=== PATIENT | male | born 1990 | race Caucasian/White ===

== ENCOUNTER → 2017-05-31 | Outpatient (CLI) | payer OTHER ==
[~2017-05-31] MED LIST: (None)20 M1 PO; ALBU2.5V5 NEB; ALBU90OI INH; AZIT500 PO; Advair Hfa 115-12 GM INH; Albuterol2.5 MG/0.5 INH; BUDE10.22 INH; BUDE6HFA INH; DILT120ERA PO; MONT10T PO; NICO21TP TOP; NIFE10 PO; NIFE60ER PO; Nicoderm Cq1 EAC1 TOP; Omeprazole20 M1 PO; PRED20 PO; Prednisone20 MG PO; Pulmicort0.5 MG/2 M INH; ROBITUSSIN DM PO; ZYRTEC10 M1 PO
[2017-05-31 10:54] LABS: Anion Gap 6 mmol/L (6-16); Blood Urea Nitrogen 12 mg/dL (8-24); Bun/Creatinine Ratio 15.2 (12.0-20.0); CO2, Blood 27 mmol/L (21-32); Calcium, Blood 8.3 mg/dL (8.5-10.1); Chloride, Blood 107 mmol/L (98-108); Creatinine, Blood 0.79 mg/dL (0.60-1.20); Glomerular Filtration Rate >60 (60-); Glucose, Blood 77 mg/dL (70-99); Potassium, Blood 3.5 mmol/L (3.5-5.5); Sodium, Blood 140 mmol/L (136-145)
== END | disposition home or self-care (01) ==
LOC: LAB 10:25
PROVIDERS: Internal Medicine
DX: I10 Essential (primary) hypertension (principal)
CPT/HCPCS: 80048

== ENCOUNTER 2017-12-26 08:26 | Day surgery (SDC) | payer OTHER ==
[~2017-12-26] VITALS: Ht 175.3 cm; Wt 97.1 kg
[~2017-12-26 08:26] MED LIST changes: -ALBU2.5V5 NEB; -AZIT500 PO; -BUDE6HFA INH; -NICO21TP TOP; -NIFE10 PO; -Nicoderm Cq1 EAC1 TOP; -Omeprazole20 M1 PO; -Prednisone20 MG PO; -Pulmicort0.5 MG/2 M INH
== END 2017-12-26 10:50 | disposition home or self-care (01) ==
LOC: ORSCSDS 08:26
PROVIDERS: Student in an Organized Health Care Education/Training Program
PROC: 0DB58ZX Excision of Esophagus, Via Natural or Artificial Opening Endoscopic, Diagnostic (ICD-10-PCS; principal; 2017-12-26 09:45)
PROC: 0D758ZZ Dilation of Esophagus, Via Natural or Artificial Opening Endoscopic (ICD-10-PCS; principal; 2017-12-26 09:45)
PROC: 0DB68ZX Excision of Stomach, Via Natural or Artificial Opening Endoscopic, Diagnostic (ICD-10-PCS; principal; 2017-12-26 09:45)
DX: K21.9 Gastro-esophageal reflux disease without esophagitis (principal); R13.10 Dysphagia, unspecified; R10.13 Epigastric pain; K22.2 Esophageal obstruction; I10 Essential (primary) hypertension; F17.210 Nicotine dependence, cigarettes, uncomplicated; J45.909 Unspecified asthma, uncomplicated; Z79.899 Other long term (current) drug therapy
CPT/HCPCS: C1726; J0330; J1980; J2405; J7120

== ENCOUNTER 2018-01-26 21:54 | Emergency (ER) | payer OTHER ==
[~2018-01-26] VITALS: Ht 177.8 cm; Wt 99.8 kg
[2018-01-26] MEDS ORDERED: BUDE6HFA INH (22:29)
[2018-01-26] MEDS ORDERED: Omeprazole20 M1 PO (22:29)
[2018-01-26] MEDS ORDERED: NIFE10 PO (22:30)
[2018-01-27] MEDS ORDERED: Prednisone20 MG PO (01:21)
[2018-01-27] MEDS ORDERED: Omeprazole20 M1 PO (19:49)
[2018-01-27] MEDS ORDERED: NIFE60ER PO (19:51)
[2018-01-29] MEDS ORDERED: ALBU2.5V5 NEB (10:21)
[2018-01-29] MEDS ORDERED: NICO21TP TOP (10:23)
[2018-01-29] MEDS ORDERED: (None)20 M1 PO (10:23)
[2018-01-29] MEDS ORDERED: Pulmicort0.5 MG/2 M INH (10:24)
== END 2018-01-27 01:28 | disposition home or self-care (01) ==
LOC: ER 21:54
DX: J45.901 Unspecified asthma with (acute) exacerbation (principal); F17.200 Nicotine dependence, unspecified, uncomplicated; Z91.011 Allergy to milk products; Z91.048 Other nonmedicinal substance allergy status; Z79.899 Other long term (current) drug therapy; Z79.51 Long term (current) use of inhaled steroids
CPT/HCPCS: 71046; 94644; 99283-25; J1100

== ENCOUNTER 2018-01-27 09:02 | Emergency (ER) | payer OTHER ==
[~2018-01-27] VITALS: Ht 177.8 cm; Wt 99.8 kg
[~2018-01-27 09:02] MED LIST changes: +BUDE6HFA INH; +NIFE10 PO; +Omeprazole20 M1 PO; +Prednisone20 MG PO
[2018-01-27 12:21] LABS: PCO2 Arterial 40.5 mmHg (35-45); PO2 Arterial 62.7 mmHg (80-100)
[2018-01-27] MEDS ORDERED: Omeprazole20 M1 PO ×2 (19:49)
[2018-01-27] MEDS ORDERED: NIFE60ER PO ×2 (19:51)
== END 2018-01-27 14:58 | disposition home or self-care (01) ==
LOC: ER 09:02
PROVIDERS: Nurse Practitioner Family
DX: J45.901 Unspecified asthma with (acute) exacerbation (principal); F17.200 Nicotine dependence, unspecified, uncomplicated; Z91.011 Allergy to milk products; Z91.048 Other nonmedicinal substance allergy status; Z79.899 Other long term (current) drug therapy; Z79.51 Long term (current) use of inhaled steroids
CPT/HCPCS: 36415; 36600; 82803; 94640; 94644; 96374; 96375; 99283-25; J2930; J3475

== ENCOUNTER 2018-01-27 17:06 | Inpatient (IN) | payer OTHER ==
[~2018-01-27] VITALS: Ht 177.8 cm; Wt 97.9 kg
[2018-01-27 18:16] LABS: BASOPHILS ABSOLUTE AUTO 0.01 K/mm3 (0.00-0.23); BASOPHILS PERCENT AUTO 0 % (0-2); EOSINOPHILS PERCENT AUTO 0 % (0-6); Hematocrit 47.7 % (37.0-53.0); Hemoglobin 15.3 g/dL (13.5-17.5); IMMATURE GRAN ABSOLUTE AUTO 0.08 K/mm3 (0.00-0.10); IMMATURE GRAN PERCENT AUTO 1 % (0-1); LYMPHOCYTES ABSOLUTE AUTO 0.22 K/mm3 (0.84-5.20); LYMPHOCYTES PERCENT AUTO 1 % (21-46); MONOCYTES ABSOLUTE AUTO 0.13 K/mm3 (0.16-1.47); MONOCYTES PERCENT AUTO 1 % (4-13); Mean Corpuscular HGB 31.4 pg (26.0-34.0); Mean Corpuscular HGB Conc 32.1 g/dL (31.5-36.5); Mean Corpuscular Volume 98 fL (80-100); Mean Platelet Volume 9.8 fL (9.1-12.4); NEUTROPHILS ABSOLUTE AUTO 15.17 K/mm3 (1.96-9.15); NEUTROPHILS PERCENT AUTO 97 % (41-73); Platelet Count 159 K/mm3 (150-400); RDW Coefficient Variation 12.7 % (11.7-14.2); RDW Standard Deviation 45.9 fL (35.1-46.3); Red Blood Cell Count 4.87 M/mm3 (4.30-5.90); White Blood Cell Count 15.61 K/mm3 (4.00-11.30)
[2018-01-27 18:30] LABS: Anion Gap 9 mmol/L (6-16); Blood Urea Nitrogen 11 mg/dL (8-24); Bun/Creatinine Ratio 15.9 (12.0-20.0); CO2, Blood 24 mmol/L (21-32); Calcium, Blood 8.5 mg/dL (8.5-10.1); Chloride, Blood 106 mmol/L (98-108); Creatinine, Blood 0.69 mg/dL (0.60-1.20); Glomerular Filtration Rate >60 (60-); Glucose, Blood 225 mg/dL (70-99); Potassium, Blood 3.9 mmol/L (3.5-5.5); Sodium, Blood 139 mmol/L (136-145)
[2018-01-27] MEDS ORDERED: Omeprazole20 M1 PO ×2 (19:49)
[2018-01-27] MEDS ORDERED: NIFE60ER PO ×2 (19:51)
[2018-01-28 05:20] LABS: BASOPHILS ABSOLUTE AUTO 0.03 K/mm3 (0.00-0.23); BASOPHILS PERCENT AUTO 0 % (0-2); EOSINOPHILS PERCENT AUTO 0 % (0-6); Hematocrit 46.4 % (37.0-53.0); IMMATURE GRAN ABSOLUTE AUTO 0.12 K/mm3 (0.00-0.10); IMMATURE GRAN PERCENT AUTO 1 % (0-1); LYMPHOCYTES ABSOLUTE AUTO 0.49 K/mm3 (0.84-5.20); LYMPHOCYTES PERCENT AUTO 3 % (21-46); MONOCYTES ABSOLUTE AUTO 0.52 K/mm3 (0.16-1.47); MONOCYTES PERCENT AUTO 3 % (4-13); Mean Corpuscular HGB 31.1 pg (26.0-34.0); Mean Corpuscular HGB Conc 32.3 g/dL (31.5-36.5); Mean Corpuscular Volume 96 fL (80-100); NEUTROPHILS ABSOLUTE AUTO 17.26 K/mm3 (1.96-9.15); NEUTROPHILS PERCENT AUTO 94 % (41-73); Platelet Count 177 K/mm3 (150-400); RDW Coefficient Variation 13.1 % (11.7-14.2); RDW Standard Deviation 46.3 fL (35.1-46.3); Red Blood Cell Count 4.82 M/mm3 (4.30-5.90); White Blood Cell Count 18.42 K/mm3 (4.00-11.30)
[2018-01-28 05:38] LABS: Anion Gap 8 mmol/L (6-16); Blood Urea Nitrogen 14 mg/dL (8-24); Bun/Creatinine Ratio 19.2 (12.0-20.0); CO2, Blood 25 mmol/L (21-32); Calcium, Blood 8.3 mg/dL (8.5-10.1); Chloride, Blood 106 mmol/L (98-108); Creatinine, Blood 0.73 mg/dL (0.60-1.20); Glomerular Filtration Rate >60 (60-); Glucose, Blood 208 mg/dL (70-99); Sodium, Blood 139 mmol/L (136-145)
[2018-01-29] MEDS ORDERED: ALBU2.5V5 NEB ×2 (10:21)
[2018-01-29] MEDS ORDERED: NICO21TP TOP ×2 (10:23)
[2018-01-29] MEDS ORDERED: (None)20 M1 PO ×2 (10:23)
[2018-01-29] MEDS ORDERED: Pulmicort0.5 MG/2 M INH ×2 (10:24)
== END 2018-01-29 11:15 | disposition home or self-care (01) | DRG 202 ==
LOC: ER 17:06 → MEDS 17:07 → ENPENDDIS 01-29 10:03 → MEDS 01-29 11:15
PROVIDERS: Emergency Medicine; Hospitalist
PROC: 3E0234Z Introduction of Serum, Toxoid and Vaccine into Muscle, Percutaneous Approach (ICD-10-PCS; principal; 2018-01-27)
DX: J45.901 Unspecified asthma with (acute) exacerbation (principal); J96.01 Acute respiratory failure with hypoxia; Z23 Encounter for immunization; K21.9 Gastro-esophageal reflux disease without esophagitis; I10 Essential (primary) hypertension; R73.9 Hyperglycemia, unspecified; T38.0X5A Adverse effect of glucocorticoids and synthetic analogues, initial encounter; F17.210 Nicotine dependence, cigarettes, uncomplicated; Z88.8 Allergy status to other drugs, medicaments and biological substances; Z91.011 Allergy to milk products; Z79.52 Long term (current) use of systemic steroids; Z79.899 Other long term (current) drug therapy
CPT/HCPCS: 36415; 80048; 82947; 85025; 87070; 87205; 90686; 94640; 94760; 96372; 96374; 96376; 99285-25; G0008; G0378; J1650; J2920

== ENCOUNTER 2018-01-31 09:11 | Inpatient (IN) | payer OTHER ==
[~2018-01-31] VITALS: Ht 177.8 cm; Wt 95.3 kg
[~2018-01-31 09:11] MED LIST changes: +ALBU2.5V5 NEB; +NICO21TP TOP; +Pulmicort0.5 MG/2 M INH
[2018-01-31 12:31] LABS: BASOPHILS ABSOLUTE AUTO 0.03 K/mm3 (0.00-0.23); BASOPHILS PERCENT AUTO 0 % (0-2); EOSINOPHILS ABSOLUTE AUTO 0.01 K/mm3 (0.00-0.68); EOSINOPHILS PERCENT AUTO 0 % (0-6); Hematocrit 47.2 % (37.0-53.0); Hemoglobin 15.5 g/dL (13.5-17.5); IMMATURE GRAN ABSOLUTE AUTO 0.34 K/mm3 (0.00-0.10); IMMATURE GRAN PERCENT AUTO 3 % (0-1); LYMPHOCYTES ABSOLUTE AUTO 0.47 K/mm3 (0.84-5.20); LYMPHOCYTES PERCENT AUTO 5 % (21-46); MONOCYTES PERCENT AUTO 4 % (4-13); Mean Corpuscular HGB 31.5 pg (26.0-34.0); Mean Corpuscular HGB Conc 32.8 g/dL (31.5-36.5); Mean Corpuscular Volume 96 fL (80-100); Mean Platelet Volume 9.4 fL (9.1-12.4); NEUTROPHILS ABSOLUTE AUTO 9.21 K/mm3 (1.96-9.15); NEUTROPHILS PERCENT AUTO 88 % (41-73); Platelet Count 142 K/mm3 (150-400); RDW Coefficient Variation 12.8 % (11.7-14.2); RDW Standard Deviation 45.1 fL (35.1-46.3); Red Blood Cell Count 4.92 M/mm3 (4.30-5.90); White Blood Cell Count 10.46 K/mm3 (4.00-11.30)
[2018-01-31 12:45] LABS: Anion Gap 8 mmol/L (6-16); Blood Urea Nitrogen 16 mg/dL (8-24); CO2, Blood 30 mmol/L (21-32); Calcium, Blood 8.3 mg/dL (8.5-10.1); Chloride, Blood 104 mmol/L (98-108); Creatinine, Blood 0.76 mg/dL (0.60-1.20); Glomerular Filtration Rate >60 (60-); Glucose, Blood 108 mg/dL (70-99); Potassium, Blood 3.8 mmol/L (3.5-5.5); Sodium, Blood 142 mmol/L (136-145)
[2018-01-31 14:06] LABS: Influenza A Negative (NEGATIVE); Influenza B Negative (NEGATIVE)
[2018-02-01 05:18] LABS: BASOPHILS ABSOLUTE AUTO 0.05 K/mm3 (0.00-0.23); BASOPHILS PERCENT AUTO 0 % (0-2); EOSINOPHILS PERCENT AUTO 0 % (0-6); Hematocrit 47.6 % (37.0-53.0); Hemoglobin 15.4 g/dL (13.5-17.5); IMMATURE GRAN ABSOLUTE AUTO 0.36 K/mm3 (0.00-0.10); IMMATURE GRAN PERCENT AUTO 3 % (0-1); LYMPHOCYTES ABSOLUTE AUTO 0.71 K/mm3 (0.84-5.20); LYMPHOCYTES PERCENT AUTO 6 % (21-46); MONOCYTES ABSOLUTE AUTO 0.67 K/mm3 (0.16-1.47); MONOCYTES PERCENT AUTO 5 % (4-13); Mean Corpuscular HGB 31.4 pg (26.0-34.0); Mean Corpuscular HGB Conc 32.4 g/dL (31.5-36.5); Mean Corpuscular Volume 97 fL (80-100); Mean Platelet Volume 9.6 fL (9.1-12.4); NEUTROPHILS ABSOLUTE AUTO 10.89 K/mm3 (1.96-9.15); NEUTROPHILS PERCENT AUTO 86 % (41-73); Platelet Count 164 K/mm3 (150-400); RDW Coefficient Variation 12.8 % (11.7-14.2); RDW Standard Deviation 45.4 fL (35.1-46.3); White Blood Cell Count 12.68 K/mm3 (4.00-11.30)
[2018-02-01 05:43] LABS: Anion Gap 8 mmol/L (6-16); Blood Urea Nitrogen 16 mg/dL (8-24); Bun/Creatinine Ratio 20.5 (12.0-20.0); CO2, Blood 28 mmol/L (21-32); Calcium, Blood 8.4 mg/dL (8.5-10.1); Chloride, Blood 104 mmol/L (98-108); Creatinine, Blood 0.78 mg/dL (0.60-1.20); Glomerular Filtration Rate >60 (60-); Glucose, Blood 161 mg/dL (70-99); Potassium, Blood 4.2 mmol/L (3.5-5.5); Sodium, Blood 140 mmol/L (136-145)
[2018-02-02 04:52] LABS: BASOPHILS ABSOLUTE AUTO 0.04 K/mm3 (0.00-0.23); BASOPHILS PERCENT AUTO 0 % (0-2); EOSINOPHILS PERCENT AUTO 0 % (0-6); Hematocrit 50.6 % (37.0-53.0); Hemoglobin 16.7 g/dL (13.5-17.5); IMMATURE GRAN ABSOLUTE AUTO 0.49 K/mm3 (0.00-0.10); IMMATURE GRAN PERCENT AUTO 4 % (0-1); LYMPHOCYTES ABSOLUTE AUTO 0.75 K/mm3 (0.84-5.20); LYMPHOCYTES PERCENT AUTO 6 % (21-46); MONOCYTES ABSOLUTE AUTO 0.47 K/mm3 (0.16-1.47); MONOCYTES PERCENT AUTO 4 % (4-13); Mean Corpuscular HGB 31.5 pg (26.0-34.0); Mean Corpuscular Volume 96 fL (80-100); Mean Platelet Volume 9.4 fL (9.1-12.4); NEUTROPHILS ABSOLUTE AUTO 11.53 K/mm3 (1.96-9.15); NEUTROPHILS PERCENT AUTO 87 % (41-73); Platelet Count 186 K/mm3 (150-400); RDW Coefficient Variation 12.9 % (11.7-14.2); RDW Standard Deviation 45.2 fL (35.1-46.3); White Blood Cell Count 13.28 K/mm3 (4.00-11.30)
[2018-02-02] MEDS ORDERED: Nicoderm Cq1 EAC1 TOP (10:21)
[2018-02-02] MEDS ORDERED: AZIT500 PO (10:21)
== END 2018-02-02 11:03 | disposition home or self-care (01) | DRG 189 ==
LOC: ER 09:11 → MEDS 09:12
PROVIDERS: Family Medicine
PROC: 3E0234Z Introduction of Serum, Toxoid and Vaccine into Muscle, Percutaneous Approach (ICD-10-PCS; principal; 2018-01-31)
DX: J96.01 Acute respiratory failure with hypoxia (principal); J45.901 Unspecified asthma with (acute) exacerbation; I10 Essential (primary) hypertension; F17.210 Nicotine dependence, cigarettes, uncomplicated; Z91.011 Allergy to milk products; Z79.899 Other long term (current) drug therapy; Z23 Encounter for immunization
CPT/HCPCS: 36415; 71046; 80048; 85025; 87449; 87804; 90732; 94640; 94644; 94760; 96374; 99285-25; J0456; J2920; J2930; J7050

== ENCOUNTER 2018-05-13 10:44 | Emergency (ER) | payer OTHER ==
[~2018-05-13] VITALS: Ht 177.8 cm; Wt 103.4 kg
[~2018-05-13 10:44] MED LIST changes: +AZIT500 PO; +Nicoderm Cq1 EAC1 TOP
[2018-05-13] MEDS ORDERED: Pulmicort0.5 MG/2 M INH (11:39)
[2018-05-13] MEDS ORDERED: PRED20 PO (11:39)
[2018-05-13] MEDS ORDERED: ALBU90OI INH (11:39)
[2018-05-13] MEDS ORDERED: OMEPRAZOLE20 MG PO (11:39)
[2018-05-13] MEDS ORDERED: NIFE60ER PO (11:39)
[2018-05-13] MEDS ORDERED: BUDE10.22 INH (11:39)
== END 2018-05-13 12:01 | disposition home or self-care (01) ==
LOC: ER 10:44
DX: J45.901 Unspecified asthma with (acute) exacerbation (principal); Z91.011 Allergy to milk products; Z88.8 Allergy status to other drugs, medicaments and biological substances; Z79.899 Other long term (current) drug therapy; Z79.52 Long term (current) use of systemic steroids; J45.909 Unspecified asthma, uncomplicated; I10 Essential (primary) hypertension; F17.210 Nicotine dependence, cigarettes, uncomplicated
CPT/HCPCS: 94640; 99284-25

== ENCOUNTER 2018-06-13 02:12 | Emergency (ER) | payer MEDICAID ==
[~2018-06-13] VITALS: Ht 177.8 cm; Wt 104.3 kg
[~2018-06-13 02:12] MED LIST changes: +OMEPRAZOLE20 MG PO
[2018-06-13] MEDS ORDERED: Prednisone20 MG PO (04:31)
[2018-06-13] MEDS ORDERED: Proventil5 MG/1 ML INH (04:31)
== END 2018-06-13 04:44 | disposition home or self-care (01) ==
LOC: ER 02:12
DX: J45.901 Unspecified asthma with (acute) exacerbation (principal); I10 Essential (primary) hypertension; K21.9 Gastro-esophageal reflux disease without esophagitis; Z91.011 Allergy to milk products; Z91.048 Other nonmedicinal substance allergy status; F17.200 Nicotine dependence, unspecified, uncomplicated
CPT/HCPCS: 71046; 94640; 99285-25

== ENCOUNTER 2018-07-27 10:01 | Inpatient (IN) | payer OTHER ==
[~2018-07-27] VITALS: Ht 177.8 cm; Wt 106.7 kg
[~2018-07-27 10:01] MED LIST changes: +Accuneb0.63 MG/3 INH; +Proventil5 MG/1 ML INH
[2018-07-27 10:29] LABS: BASOPHILS ABSOLUTE AUTO 0.09 K/mm3 (0.00-0.23); BASOPHILS PERCENT AUTO 1 % (0-2); EOSINOPHILS ABSOLUTE AUTO 0.01 K/mm3 (0.00-0.68); EOSINOPHILS PERCENT AUTO 0 % (0-6); Hematocrit 49.8 % (37.0-53.0); IMMATURE GRAN ABSOLUTE AUTO 0.12 K/mm3 (0.00-0.10); IMMATURE GRAN PERCENT AUTO 1 % (0-1); LYMPHOCYTES ABSOLUTE AUTO 0.92 K/mm3 (0.84-5.20); LYMPHOCYTES PERCENT AUTO 5 % (21-46); MONOCYTES ABSOLUTE AUTO 2.03 K/mm3 (0.16-1.47); MONOCYTES PERCENT AUTO 10 % (4-13); Mean Corpuscular HGB 31.9 pg (26.0-34.0); Mean Corpuscular HGB Conc 32.1 g/dL (31.5-36.5); Mean Corpuscular Volume 99 fL (80-100); Mean Platelet Volume 9.6 fL (9.1-12.4); NEUTROPHILS ABSOLUTE AUTO 16.32 K/mm3 (1.96-9.15); NEUTROPHILS PERCENT AUTO 84 % (41-73); Platelet Count 190 K/mm3 (150-400); RDW Coefficient Variation 13.5 % (11.7-14.2); RDW Standard Deviation 49.3 fL (35.1-46.3); Red Blood Cell Count 5.01 M/mm3 (4.30-5.90); White Blood Cell Count 19.49 K/mm3 (4.00-11.30)
[2018-07-27 10:51] LABS: Alanine Aminotransfer (ALT/SGP 43 U/L (12-78); Albumin, Blood 4.1 g/dL (3.4-5.0); Albumin/Globulin Ratio 1.1 (0.8-1.8); Alk Phos 73 U/L (50-136); Anion Gap 6 mmol/L (6-16); Aspartate Aminotrans (AST/SGOT 81 U/L (12-37); Bilirubin, Total 1.8 mg/dL (0.1-1.0); Blood Urea Nitrogen 23 mg/dL (8-24); Bun/Creatinine Ratio 25.7 (12.0-20.0); CO2, Blood 26 mmol/L (21-32); Calcium, Blood 8.2 mg/dL (8.5-10.1); Chloride, Blood 105 mmol/L (98-108); Globulin, Blood 3.7 g/dL (2.2-4.0); Glomerular Filtration Rate >60 (60-); Glucose, Blood 107 mg/dL (70-99); Potassium, Blood 3.4 mmol/L (3.5-5.5); Sodium, Blood 137 mmol/L (136-145); Total Protein, Blood 7.8 g/dL (6.4-8.2)
[2018-07-27 11:06] LABS: Influenza A Positive (NEGATIVE); Influenza B Negative (NEGATIVE)
[2018-07-27 11:10] LABS: PCO2 Arterial 41.2 mmHg (35-45); PO2 Arterial 68.9 mmHg (80-100); pH Blood Arterial 7.39 (7.35-7.45)
[2018-07-27 16:06] LABS: BASOPHILS ABSOLUTE AUTO 0.05 K/mm3 (0.00-0.23); BASOPHILS PERCENT AUTO 0 % (0-2); EOSINOPHILS PERCENT AUTO 0 % (0-6); Hematocrit 46.9 % (37.0-53.0); Hemoglobin 14.8 g/dL (13.5-17.5); IMMATURE GRAN ABSOLUTE AUTO 0.04 K/mm3 (0.00-0.10); IMMATURE GRAN PERCENT AUTO 0 % (0-1); LYMPHOCYTES PERCENT AUTO 2 % (21-46); MONOCYTES ABSOLUTE AUTO 0.63 K/mm3 (0.16-1.47); MONOCYTES PERCENT AUTO 5 % (4-13); Mean Corpuscular HGB 31.4 pg (26.0-34.0); Mean Corpuscular HGB Conc 31.6 g/dL (31.5-36.5); Mean Corpuscular Volume 100 fL (80-100); Mean Platelet Volume 9.9 fL (9.1-12.4); NEUTROPHILS ABSOLUTE AUTO 11.76 K/mm3 (1.96-9.15); NEUTROPHILS PERCENT AUTO 92 % (41-73); Platelet Count 146 K/mm3 (150-400); RDW Coefficient Variation 13.8 % (11.7-14.2); RDW Standard Deviation 51.5 fL (35.1-46.3); Red Blood Cell Count 4.71 M/mm3 (4.30-5.90); White Blood Cell Count 12.78 K/mm3 (4.00-11.30)
[2018-07-27 16:24] LABS: International Normalized Ratio 1.13; Prothrombin Time Results 11.8 Sec (9.7-11.5)
[2018-07-27 18:50] LABS: Source, Urine Catheter
[2018-07-27 19:11] LABS: Appearance, Urine Clear (Clear); Bilirubin, Urine Neg (Neg); Blood, Urine Neg (Neg); Color, Urine Yellow (P-Yellow); Glucose Qualitative, Urine Neg (Neg); Ketones, Urine Neg (Neg); Leukocyte Esterase, Urine Neg (Neg); Nitrite, Urine Neg (Neg); Protein, Urine Neg (Neg); Urobilinogen, Urine NORM (Normal)
[2018-07-28 05:00] LABS: BASOPHILS ABSOLUTE AUTO 0.01 K/mm3 (0.00-0.23); BASOPHILS PERCENT AUTO 0 % (0-2); EOSINOPHILS PERCENT AUTO 0 % (0-6); Hematocrit 41.8 % (37.0-53.0); Hemoglobin 13.3 g/dL (13.5-17.5); IMMATURE GRAN ABSOLUTE AUTO 0.04 K/mm3 (0.00-0.10); IMMATURE GRAN PERCENT AUTO 0 % (0-1); LYMPHOCYTES ABSOLUTE AUTO 0.22 K/mm3 (0.84-5.20); LYMPHOCYTES PERCENT AUTO 3 % (21-46); MONOCYTES ABSOLUTE AUTO 0.14 K/mm3 (0.16-1.47); MONOCYTES PERCENT AUTO 2 % (4-13); Mean Corpuscular HGB 31.6 pg (26.0-34.0); Mean Corpuscular HGB Conc 31.8 g/dL (31.5-36.5); Mean Corpuscular Volume 99 fL (80-100); Mean Platelet Volume 9.8 fL (9.1-12.4); NEUTROPHILS ABSOLUTE AUTO 8.56 K/mm3 (1.96-9.15); NEUTROPHILS PERCENT AUTO 95 % (41-73); Platelet Count 114 K/mm3 (150-400); RDW Coefficient Variation 13.2 % (11.7-14.2); RDW Standard Deviation 48.7 fL (35.1-46.3); Red Blood Cell Count 4.21 M/mm3 (4.30-5.90); White Blood Cell Count 8.97 K/mm3 (4.00-11.30)
[2018-07-28 05:29] LABS: Anion Gap 7 mmol/L (6-16); Blood Urea Nitrogen 15 mg/dL (8-24); Bun/Creatinine Ratio 24.2 (12.0-20.0); CO2, Blood 26 mmol/L (21-32); Chloride, Blood 107 mmol/L (98-108); Creatinine, Blood 0.62 mg/dL (0.60-1.20); Glomerular Filtration Rate >60 (60-); Glucose, Blood 155 mg/dL (70-99); Potassium, Blood 3.7 mmol/L (3.5-5.5); Sodium, Blood 140 mmol/L (136-145)
--- NOTE | 2018-07-28 06:41 | NUR ---
SHIFT SUMMARY PT IS A 27 Y/O MALE, ADMITTED FOR SEPSIS RELATED TO THE FLU. HE IS A7O X 4, AND ABLE TO AMBULATE INDEPENDENTLY WITH HIS IV POLE. THE PT HAS BEEN RECEIVING A HIGH AMOUNT OF IV FLUIDS, WITH 3X LR BOLUS AND LR AT 150 ML/HR. HE REPORTED THAT HE IS FEELING "MUCH BETTER" COMPARED WITH HIS ADMISSION, THOUGH HE IS STILL REPORTING INCREASED SOB COMPARED TO HIS BASELINE, WHICH IS WORSE WITH AMBULATION. HE DENIED ANY PAIN OR NAUSEA. VITAL SIGNS STABLE. NO OTHER ACUTE CHANGES IN PT CONDITION NOTED. WILL CONTINUE TO MONITOR AND TREAT PER EMAR UNTIL HAND OFF TO DAY SHIFT.
--- NOTE | 2018-07-28 16:56 | NUR ---
SHIFT SUMMARY 27 YR OLD MALE ADMITTED FOR SEPSIS/FLU/ASTHMA EXACERBATION. FULL CODE. LR DECREASED TO 100 ML/HR TODAY. SOLUMEDROL DECREASED TO 40 MG DOSES TODAY. PT IS AC [id number] CHEMSTICKS (LIKELY RE:SOLUMEDROL). PT IS TACHYCARDIC ON AVG. RUNNING 100'S-112 BPM. MONITORED BY TELEMETRY/PCU MOTOR GENERATOR SET OPERATOR. PLAN IS FOR PT TO DC IN THE MORNING. PT MAY NEED HELP WITH DISCHARGE PLANNING DUE TO LACK OF HEALTH INSURANCE. HE IS A&O X4, INDEPENDENT IN THE ROOM. PT LIVES AT HOME AND WILL DC THERE. NO COMPLAINTS OF PAIN OR SOB, PT IS RECEIVING TREATMENTS FROM RESPIRATORY THERAPY. HE IS IN DROPLET/CONTACT PRECAUTIONS DUE TO INFLUENZA A.
--- NOTE | 2018-07-29 04:13 | NUR ---
Shift summary: Pt states he's feeling much better. Pt tolerating po well. Pt remains on contact /droplet precauion. Telemetry sinus tach 115- 115.. No nausea/vomiting / diahrea. Pt anticipating D/c in am.
[2018-07-29] MEDS ORDERED: ALBU2.5V5 NEB (12:44)
[2018-07-29] MEDS ORDERED: OSEL75CA PO (12:45)
[2018-07-29] MEDS ORDERED: FLUT1DIS5 INH (12:46)
[2018-07-29] MEDS ORDERED: LEVO750 PO (12:47)
[2018-07-29] MEDS ORDERED: PRED10 PO (12:52)
--- NOTE | 2018-07-29 14:14 | NUR ---
DISCHARGE DISCHARGE MEDICATIONS AND INSTRUCTIONS EXPLAINED TO PATIENT. PATIENT STATED UNDERSTANDING. IV REMOVED WITHOUT DIFFICULTY. BELONGINGS WITH PATIENT. ROSAURAETN AMBULATED TO PRIVATE VEHICLE.
== END 2018-07-29 13:44 | disposition home or self-care (01) | DRG 871 ==
LOC: ER 10:01 → MEDS 11:47 → ENPENDDIS 07-29 11:00 → MEDS 07-29 13:44
PROVIDERS: Emergency Medicine; ADMIT Internal Medicine
DX: A41.9 Sepsis, unspecified organism (principal); J96.01 Acute respiratory failure with hypoxia; J45.901 Unspecified asthma with (acute) exacerbation; R65.20 Severe sepsis without septic shock; E87.6 Hypokalemia; F17.210 Nicotine dependence, cigarettes, uncomplicated; D69.6 Thrombocytopenia, unspecified; I10 Essential (primary) hypertension; K21.9 Gastro-esophageal reflux disease without esophagitis; E86.0 Dehydration; Z91.14 Patient's other noncompliance with medication regimen; J10.1 Influenza due to other identified influenza virus with other respiratory manifestations; R73.9 Hyperglycemia, unspecified
CPT/HCPCS: 36415; 36600; 71045; 80048; 80053; 81003; 82803; 82947; 83605; 84145; 85025; 85610; 85730; 87804; 93005; 93010; 94640; 94644; 94760; 96361; 96365; 96367; 96375; 99285-25; J0456; J0696; J1650; J2930; J7030; J7050; J7120; J7626

== ENCOUNTER 2018-09-28 10:39 | Emergency (ER) | payer SELFPAY ==
[~2018-09-28] VITALS: Ht 180.3 cm; Wt 104.3 kg
[~2018-09-28 10:39] MED LIST changes: +DILT120 PO; +FLUT1DIS5 INH; +LEVO750 PO; +OSEL75CA PO; +PRED10 PO
[2018-09-28 10:56] LABS: BASOPHILS ABSOLUTE AUTO 0.06 K/mm3 (0.00-0.23); BASOPHILS PERCENT AUTO 1 % (0-2); EOSINOPHILS ABSOLUTE AUTO 0.32 K/mm3 (0.00-0.68); EOSINOPHILS PERCENT AUTO 3 % (0-6); Hematocrit 53.7 % (37.0-53.0); Hemoglobin 17.6 g/dL (13.5-17.5); IMMATURE GRAN ABSOLUTE AUTO 0.05 K/mm3 (0.00-0.10); IMMATURE GRAN PERCENT AUTO 1 % (0-1); LYMPHOCYTES ABSOLUTE AUTO 1.44 K/mm3 (0.84-5.20); LYMPHOCYTES PERCENT AUTO 14 % (21-46); MONOCYTES ABSOLUTE AUTO 0.86 K/mm3 (0.16-1.47); MONOCYTES PERCENT AUTO 8 % (4-13); Mean Corpuscular HGB 31.5 pg (26.0-34.0); Mean Corpuscular HGB Conc 32.8 g/dL (31.5-36.5); Mean Corpuscular Volume 96 fL (80-100); Mean Platelet Volume 9.7 fL (9.1-12.4); NEUTROPHILS ABSOLUTE AUTO 7.93 K/mm3 (1.96-9.15); NEUTROPHILS PERCENT AUTO 74 % (41-73); Platelet Count 174 K/mm3 (150-400); RDW Coefficient Variation 13.2 % (11.7-14.2); Red Blood Cell Count 5.59 M/mm3 (4.30-5.90); White Blood Cell Count 10.66 K/mm3 (4.00-11.30)
[2018-09-28 11:12] LABS: Alanine Aminotransfer (ALT/SGP 41 U/L (12-78); Albumin, Blood 4.2 g/dL (3.4-5.0); Albumin/Globulin Ratio 1.2 (0.8-1.8); Alk Phos 90 U/L (50-136); Anion Gap 3 mmol/L (6-16); Aspartate Aminotrans (AST/SGOT 29 U/L (12-37); Bilirubin, Total 0.9 mg/dL (0.1-1.0); Blood Urea Nitrogen 10 mg/dL (8-24); Bun/Creatinine Ratio 11.4 (12.0-20.0); CO2, Blood 31 mmol/L (21-32); Calcium, Blood 8.6 mg/dL (8.5-10.1); Chloride, Blood 108 mmol/L (98-108); Creatinine, Blood 0.88 mg/dL (0.60-1.20); Globulin, Blood 3.4 g/dL (2.2-4.0); Glomerular Filtration Rate >60 (60-); Glucose, Blood 90 mg/dL (70-99); Potassium, Blood 3.7 mmol/L (3.5-5.5); Sodium, Blood 142 mmol/L (136-145); Total Protein, Blood 7.6 g/dL (6.4-8.2)
[2018-09-28] MEDS ORDERED: Prednisone20 MG PO (11:36)
[2018-09-28] MEDS ORDERED: ALBU90OI61 INH (11:36)
== END 2018-09-28 12:19 | disposition home or self-care (01) ==
LOC: ER 10:39
PROVIDERS: Emergency Medicine
DX: J45.901 Unspecified asthma with (acute) exacerbation (principal); I10 Essential (primary) hypertension; K21.9 Gastro-esophageal reflux disease without esophagitis; F17.210 Nicotine dependence, cigarettes, uncomplicated; Z91.011 Allergy to milk products
CPT/HCPCS: 36415; 71046; 80053; 85025; 94644; 96374; 99285-25; J2930

== ENCOUNTER 2018-10-15 03:29 | Emergency (ER) | payer SELFPAY ==
[~2018-10-15] VITALS: Ht 177.8 cm; Wt 104.3 kg
[~2018-10-15 03:29] MED LIST changes: +ALBU90OI61 INH
[2018-10-15] MEDS ORDERED: Prednisone20 MG PO (05:09)
[2018-10-15] MEDS ORDERED: ALBU90OI INH (05:09)
[2019-01-16] MEDS ORDERED: ALBU2.5V5 INH (07:18)
[2019-01-16] MEDS ORDERED: PRED20 PO (07:43)
[2019-01-16] MEDS ORDERED: ALBU90OI INH (07:43)
== END 2018-10-15 06:20 | disposition home or self-care (01) ==
LOC: ER 03:29
DX: J45.901 Unspecified asthma with (acute) exacerbation (principal); I10 Essential (primary) hypertension; K21.9 Gastro-esophageal reflux disease without esophagitis; R00.0 Tachycardia, unspecified; Z91.011 Allergy to milk products; Z87.891 Personal history of nicotine dependence
CPT/HCPCS: 94640; 99284-25; J1100

== ENCOUNTER 2018-10-20 10:00 | Emergency (ER) | payer SELFPAY ==
[~2018-10-20] VITALS: Ht 177.8 cm; Wt 104.3 kg
[2018-10-20 10:41] LABS: BASOPHILS ABSOLUTE AUTO 0.05 K/mm3 (0.00-0.23); BASOPHILS PERCENT AUTO 1 % (0-2); EOSINOPHILS ABSOLUTE AUTO 0.45 K/mm3 (0.00-0.68); EOSINOPHILS PERCENT AUTO 4 % (0-6); Hematocrit 49.9 % (37.0-53.0); Hemoglobin 16.4 g/dL (13.5-17.5); IMMATURE GRAN ABSOLUTE AUTO 0.07 K/mm3 (0.00-0.10); IMMATURE GRAN PERCENT AUTO 1 % (0-1); LYMPHOCYTES ABSOLUTE AUTO 1.02 K/mm3 (0.84-5.20); LYMPHOCYTES PERCENT AUTO 9 % (21-46); MONOCYTES ABSOLUTE AUTO 0.73 K/mm3 (0.16-1.47); MONOCYTES PERCENT AUTO 7 % (4-13); Mean Corpuscular HGB 31.4 pg (26.0-34.0); Mean Corpuscular HGB Conc 32.9 g/dL (31.5-36.5); Mean Corpuscular Volume 95 fL (80-100); Mean Platelet Volume 9.7 fL (9.1-12.4); NEUTROPHILS ABSOLUTE AUTO 8.53 K/mm3 (1.96-9.15); NEUTROPHILS PERCENT AUTO 79 % (41-73); Platelet Count 160 K/mm3 (150-400); RDW Coefficient Variation 12.9 % (11.7-14.2); RDW Standard Deviation 45.8 fL (35.1-46.3); Red Blood Cell Count 5.23 M/mm3 (4.30-5.90); White Blood Cell Count 10.85 K/mm3 (4.00-11.30)
[2018-10-20 11:02] LABS: Alanine Aminotransfer (ALT/SGP 38 U/L (12-78); Albumin, Blood 3.7 g/dL (3.4-5.0); Albumin/Globulin Ratio 1.1 (0.8-1.8); Alk Phos 76 U/L (50-136); Anion Gap 4 mmol/L (6-16); Aspartate Aminotrans (AST/SGOT 19 U/L (12-37); Bilirubin, Total 0.6 mg/dL (0.1-1.0); Blood Urea Nitrogen 7 mg/dL (8-24); Bun/Creatinine Ratio 9.2 (12.0-20.0); CO2, Blood 27 mmol/L (21-32); Calcium, Blood 8.5 mg/dL (8.5-10.1); Chloride, Blood 112 mmol/L (98-108); Creatinine, Blood 0.76 mg/dL (0.60-1.20); Globulin, Blood 3.3 g/dL (2.2-4.0); Glomerular Filtration Rate >60 (60-); Glucose, Blood 70 mg/dL (70-99); Potassium, Blood 3.3 mmol/L (3.5-5.5); Sodium, Blood 143 mmol/L (136-145)
[2018-10-20] MEDS ORDERED: ALBU90OI INH (12:54)
[2018-10-20] MEDS ORDERED: FLUT1DIS5 INH (12:54)
[2019-01-16] MEDS ORDERED: ALBU2.5V5 INH (07:18)
[2019-01-16] MEDS ORDERED: PRED20 PO (07:43)
[2019-01-16] MEDS ORDERED: ALBU90OI INH (07:43)
== END 2018-10-20 13:13 | disposition home or self-care (01) ==
LOC: ER 10:00
PROVIDERS: Emergency Medicine
DX: J45.901 Unspecified asthma with (acute) exacerbation (principal); Z91.011 Allergy to milk products; Z91.048 Other nonmedicinal substance allergy status; Z79.899 Other long term (current) drug therapy; Z79.52 Long term (current) use of systemic steroids; J45.909 Unspecified asthma, uncomplicated; I10 Essential (primary) hypertension; K21.9 Gastro-esophageal reflux disease without esophagitis; Z87.891 Personal history of nicotine dependence
CPT/HCPCS: 36415; 71046; 80053; 85025; 94640; 96365; 96375; 99285-25; J2930; J3475

== ENCOUNTER 2018-10-24 19:47 | Observation (INO) | payer SELFPAY ==
[~2018-10-24] VITALS: Ht 180.3 cm; Wt 102.0 kg
[2018-10-24] MEDS ORDERED: Albuterol S5 MG/1 ML INH (21:06)
[2018-10-24] MEDS ORDERED: Prednisone50 MG PO (21:06)
[2018-10-24 22:16] LABS: BASOPHILS ABSOLUTE AUTO 0.07 K/mm3 (0.00-0.23); BASOPHILS PERCENT AUTO 1 % (0-2); EOSINOPHILS ABSOLUTE AUTO 0.44 K/mm3 (0.00-0.68); EOSINOPHILS PERCENT AUTO 4 % (0-6); Hematocrit 48.9 % (37.0-53.0); Hemoglobin 16.1 g/dL (13.5-17.5); IMMATURE GRAN ABSOLUTE AUTO 0.08 K/mm3 (0.00-0.10); IMMATURE GRAN PERCENT AUTO 1 % (0-1); LYMPHOCYTES PERCENT AUTO 10 % (21-46); MONOCYTES ABSOLUTE AUTO 0.57 K/mm3 (0.16-1.47); MONOCYTES PERCENT AUTO 6 % (4-13); Mean Corpuscular HGB 31.6 pg (26.0-34.0); Mean Corpuscular HGB Conc 32.9 g/dL (31.5-36.5); Mean Corpuscular Volume 96 fL (80-100); Mean Platelet Volume 9.3 fL (9.1-12.4); NEUTROPHILS ABSOLUTE AUTO 7.92 K/mm3 (1.96-9.15); NEUTROPHILS PERCENT AUTO 79 % (41-73); Platelet Count 159 K/mm3 (150-400); RDW Standard Deviation 46.4 fL (35.1-46.3); Red Blood Cell Count 5.09 M/mm3 (4.30-5.90); White Blood Cell Count 10.08 K/mm3 (4.00-11.30)
[2018-10-24 22:31] LABS: Alanine Aminotransfer (ALT/SGP 37 U/L (12-78); Albumin, Blood 3.8 g/dL (3.4-5.0); Albumin/Globulin Ratio 1.2 (0.8-1.8); Alk Phos 75 U/L (50-136); Anion Gap 6 mmol/L (6-16); Aspartate Aminotrans (AST/SGOT 20 U/L (12-37); Bilirubin, Total 0.7 mg/dL (0.1-1.0); Blood Urea Nitrogen 8 mg/dL (8-24); Bun/Creatinine Ratio 9.5 (12.0-20.0); CO2, Blood 29 mmol/L (21-32); Calcium, Blood 8.5 mg/dL (8.5-10.1); Chloride, Blood 107 mmol/L (98-108); Creatinine, Blood 0.84 mg/dL (0.60-1.20); Globulin, Blood 3.1 g/dL (2.2-4.0); Glomerular Filtration Rate >60 (60-); Glucose, Blood 118 mg/dL (70-99); Magnesium, Blood 2.3 mg/dL (1.6-2.4); Potassium, Blood 3.2 mmol/L (3.5-5.5); Sodium, Blood 142 mmol/L (136-145); Total Protein, Blood 6.9 g/dL (6.4-8.2)
--- NOTE | 2018-10-25 00:45 | NUR ---
RECEIVED REPORT FROM LUCAS CASTILLO RN. PT ARRIVED TO 343 VIA GURNEY. PT TRANSFERRED SELF TO BED. ON 2L VIA NC. TACHY RESPIRATIONS. SATS 95%. VEWS SCORE 4 FROM TACHY HEART RATE AND RESPIRATIONS. HEART RATE AND RESPIRATIONS TRENDING DOWN FROM WHAT THEY WERE IN THE ER. A/O. INDEPENDENT. WILL MONITOR AND PROVIDE CARE T/O SHIFT. CALL LT IN REACH.
--- NOTE | 2018-10-25 03:20 | NUR ---
PT AWAKE WATCHING TV. STATES HE'S DOING GOOD. CALL LT IN REACH.
[2018-10-25 03:59] LABS: Adenovirus Not Detected (NOT DETECT); Bordetella pertussis Not Detected (NOT DETECT); Chlamydophila pneumoniae Not Detected (NOT DETECT); Coronavirus 229E Not Detected (NOT DETECT); Coronavirus HKU1 Not Detected (NOT DETECT); Coronavirus NL63 Not Detected (NOT DETECT); Coronavirus OC43 Not Detected (NOT DETECT); Human Metapneumovirus Not Detected (NOT DETECT); Human Rhinovirus/Enterovirus Not Detected (NOT DETECT); Influenza A Not Detected (NOT DETECT); Influenza A/2009-H1 Not Detected (NOT DETECT); Influenza A/H1 Not Detected (NOT DETECT); Influenza A/H3 Not Detected (NOT DETECT); Influenza B Not Detected (NOT DETECT); Mycoplasma pneumoniae Not Detected (NOT DETECT); Parainfluenza Virus 1 Not Detected (NOT DETECT); Parainfluenza Virus 2 Not Detected (NOT DETECT); Parainfluenza Virus 3 Not Detected (NOT DETECT); Parainfluenza Virus 4 Not Detected (NOT DETECT); Respiratory Syncytial Virus Not Detected (NOT DETECT)
--- NOTE | 2018-10-25 04:13 | NUR ---
SHIFT SUMMARY: ER ADMIT AT 0045. A/O AND INDEPENDENT IN RM. DYSPNEA DURING CONVERSATION AND ACTIVITY. ON 2L VIA NC. NO O2 DEPENDENT AT HOME. HX OF TACHYCARDIA. NO COMPLAINTS OF PAIN OR NAUSEA. PLEASANT AND COOPERATIVE WITH CARE. WILL CONTINUE TO MONITOR AND PROVIDE CARE UNTIL SHIFT REPORT.
[2018-10-25 05:16] LABS: Hemoglobin 16.4 g/dL (13.5-17.5); Mean Corpuscular HGB 31.2 pg (26.0-34.0); Mean Corpuscular HGB Conc 32.8 g/dL (31.5-36.5); Mean Corpuscular Volume 95 fL (80-100); Mean Platelet Volume 9.9 fL (9.1-12.4); Platelet Count 171 K/mm3 (150-400); RDW Coefficient Variation 13.1 % (11.7-14.2); RDW Standard Deviation 46.2 fL (35.1-46.3); Red Blood Cell Count 5.25 M/mm3 (4.30-5.90); White Blood Cell Count 5.98 K/mm3 (4.00-11.30)
[2018-10-25 05:44] LABS: Alanine Aminotransfer (ALT/SGP 37 U/L (12-78); Albumin, Blood 3.7 g/dL (3.4-5.0); Albumin/Globulin Ratio 1.1 (0.8-1.8); Alk Phos 73 U/L (50-136); Anion Gap 10 mmol/L (6-16); Aspartate Aminotrans (AST/SGOT 11 U/L (12-37); Bilirubin, Total 1.4 mg/dL (0.1-1.0); Blood Urea Nitrogen 11 mg/dL (8-24); Bun/Creatinine Ratio 13.6 (12.0-20.0); CO2, Blood 25 mmol/L (21-32); Calcium, Blood 8.6 mg/dL (8.5-10.1); Chloride, Blood 103 mmol/L (98-108); Creatinine, Blood 0.81 mg/dL (0.60-1.20); Globulin, Blood 3.5 g/dL (2.2-4.0); Glomerular Filtration Rate >60 (60-); Glucose, Blood 282 mg/dL (70-99); Potassium, Blood 4.2 mmol/L (3.5-5.5); Sodium, Blood 138 mmol/L (136-145); Total Protein, Blood 7.2 g/dL (6.4-8.2)
--- NOTE | 2018-10-25 18:03 | NUR ---
SHIFT SUMMARY: NO ACUTE CHANGES TO REPORT THIS SHIFT. PT A&O; CALM AND COOPERATIVE WITH CARE; INDEPENDENT IN ROOM. NO C/O PAIN. TELE IN PLACE; ST @ 113 PER DOOR ASSEMBLER DURING MORNING ASSESSMENT. POC GLUCOSE BID STARTED THIS SHIFT. EXPECTED D/C TO HOME 10/26. WCTM.
[2018-10-26 05:37] LABS: Anion Gap 4 mmol/L (6-16); Blood Urea Nitrogen 16 mg/dL (8-24); Bun/Creatinine Ratio 20.5 (12.0-20.0); CO2, Blood 26 mmol/L (21-32); Calcium, Blood 8.5 mg/dL (8.5-10.1); Chloride, Blood 110 mmol/L (98-108); Creatinine, Blood 0.78 mg/dL (0.60-1.20); Glomerular Filtration Rate >60 (60-); Glucose, Blood 208 mg/dL (70-99); Potassium, Blood 4.5 mmol/L (3.5-5.5); Sodium, Blood 140 mmol/L (136-145)
[2018-10-26] MEDS ORDERED: AIRDUO RESPICL1 EAC1 INH (10:32)
[2018-10-26] MEDS ORDERED: DELTASONE20 MG PO (10:33)
[2018-10-27] MEDS ORDERED: ALBU90OI6 INH (23:40)
[2019-01-16] MEDS ORDERED: ALBU2.5V5 INH (07:18)
[2019-01-16] MEDS ORDERED: PRED20 PO (07:43)
[2019-01-16] MEDS ORDERED: ALBU90OI INH (07:43)
== END 2018-10-26 11:31 | disposition home or self-care (01) ==
LOC: ER 19:47 → MEDS 19:48 → ENPENDDIS 10-26 10:10 → MEDS 10-26 11:31
PROVIDERS: Emergency Medicine; Internal Medicine; ADMIT Internal Medicine
DX: J45.901 Unspecified asthma with (acute) exacerbation (principal); J96.01 Acute respiratory failure with hypoxia; R73.9 Hyperglycemia, unspecified; T38.0X5A Adverse effect of glucocorticoids and synthetic analogues, initial encounter; I10 Essential (primary) hypertension; K21.9 Gastro-esophageal reflux disease without esophagitis; Z79.52 Long term (current) use of systemic steroids; Z91.048 Other nonmedicinal substance allergy status; Z91.011 Allergy to milk products; Z87.891 Personal history of nicotine dependence
CPT/HCPCS: 36415; 71046; 80048; 80053; 82947; 83036; 83735; 85025; 85027; 87486; 87581; 87633; 87798; 94640; 94644; 94760; 96365; 96366; 96367; 96375; 96376; 99285-25; G0378; J1100; J2930; J3475; J3480; J7050

== ENCOUNTER 2018-10-27 22:41 | Inpatient (IN) | payer SELFPAY ==
[~2018-10-27] VITALS: Ht 177.8 cm; Wt 104.3 kg
[~2018-10-27 22:41] MED LIST changes: +AIRDUO RESPICL1 EAC1 INH; +Albuterol S5 MG/1 ML INH; +DELTASONE20 MG PO; +Prednisone50 MG PO
[2018-10-27 23:11] LABS: BASOPHILS ABSOLUTE AUTO 0.03 K/mm3 (0.00-0.23); BASOPHILS PERCENT AUTO 0 % (0-2); EOSINOPHILS ABSOLUTE AUTO 0.07 K/mm3 (0.00-0.68); EOSINOPHILS PERCENT AUTO 1 % (0-6); Hematocrit 52.2 % (37.0-53.0); Hemoglobin 16.9 g/dL (13.5-17.5); IMMATURE GRAN ABSOLUTE AUTO 0.15 K/mm3 (0.00-0.10); IMMATURE GRAN PERCENT AUTO 1 % (0-1); LYMPHOCYTES ABSOLUTE AUTO 1.38 K/mm3 (0.84-5.20); LYMPHOCYTES PERCENT AUTO 13 % (21-46); MONOCYTES ABSOLUTE AUTO 1.23 K/mm3 (0.16-1.47); MONOCYTES PERCENT AUTO 11 % (4-13); Mean Corpuscular HGB Conc 32.4 g/dL (31.5-36.5); Mean Corpuscular Volume 96 fL (80-100); Mean Platelet Volume 9.5 fL (9.1-12.4); NEUTROPHILS ABSOLUTE AUTO 7.91 K/mm3 (1.96-9.15); NEUTROPHILS PERCENT AUTO 74 % (41-73); Platelet Count 158 K/mm3 (150-400); RDW Coefficient Variation 13.9 % (11.7-14.2); RDW Standard Deviation 49.1 fL (35.1-46.3); Red Blood Cell Count 5.45 M/mm3 (4.30-5.90); White Blood Cell Count 10.77 K/mm3 (4.00-11.30)
[2018-10-27 23:34] LABS: Alanine Aminotransfer (ALT/SGP 36 U/L (12-78); Albumin, Blood 3.9 g/dL (3.4-5.0); Albumin/Globulin Ratio 1.3 (0.8-1.8); Alk Phos 80 U/L (50-136); Anion Gap 6 mmol/L (6-16); Aspartate Aminotrans (AST/SGOT 19 U/L (12-37); Bilirubin, Total 1.3 mg/dL (0.1-1.0); Blood Urea Nitrogen 15 mg/dL (8-24); Bun/Creatinine Ratio 13.9 (12.0-20.0); CO2, Blood 28 mmol/L (21-32); Calcium, Blood 8.1 mg/dL (8.5-10.1); Chloride, Blood 104 mmol/L (98-108); Creatinine, Blood 1.08 mg/dL (0.60-1.20); Globulin, Blood 3.1 g/dL (2.2-4.0); Glomerular Filtration Rate >60 (60-); Glucose, Blood 90 mg/dL (70-99); Potassium, Blood 3.7 mmol/L (3.5-5.5); Sodium, Blood 138 mmol/L (136-145)
[2018-10-27] MEDS ORDERED: ALBU90OI6 INH (23:40)
--- NOTE | 2018-10-28 06:41 | NUR ---
SHIFT SUMMARY PT NEW ADMIT THIS SHIFT. AAOX4. PT DENIES DISCOMFORT/NAUSEA. SOB GREATLY DECREASED SINCE ED POST BREATHING TX. LUNG SOUND SLIGHT EXP WHEEZE T/O. SOB WITH MINIMAL EXERTION. GOOD PO INTAKE + OUTPUT. PT ON 3L VIA NC AT THIS TIME, CONTINUE TO WEAN TOLERATED. CONTINUE IV SOLUMEDROL PER ORDERS + ABX. PT RESTING AT THIS TIME, NADN, CALL LIGHT IN REACH.
[2018-10-28 07:59] LABS: BASOPHILS ABSOLUTE AUTO 0.01 K/mm3 (0.00-0.23); BASOPHILS PERCENT AUTO 0 % (0-2); EOSINOPHILS PERCENT AUTO 0 % (0-6); Hemoglobin 15.6 g/dL (13.5-17.5); IMMATURE GRAN ABSOLUTE AUTO 0.11 K/mm3 (0.00-0.10); IMMATURE GRAN PERCENT AUTO 1 % (0-1); LYMPHOCYTES ABSOLUTE AUTO 0.33 K/mm3 (0.84-5.20); LYMPHOCYTES PERCENT AUTO 4 % (21-46); MONOCYTES ABSOLUTE AUTO 0.13 K/mm3 (0.16-1.47); MONOCYTES PERCENT AUTO 2 % (4-13); Mean Corpuscular HGB 31.2 pg (26.0-34.0); Mean Corpuscular HGB Conc 32.5 g/dL (31.5-36.5); Mean Corpuscular Volume 96 fL (80-100); Mean Platelet Volume 9.4 fL (9.1-12.4); NEUTROPHILS ABSOLUTE AUTO 7.76 K/mm3 (1.96-9.15); NEUTROPHILS PERCENT AUTO 93 % (41-73); Platelet Count 141 K/mm3 (150-400); RDW Coefficient Variation 13.9 % (11.7-14.2); RDW Standard Deviation 49.3 fL (35.1-46.3); White Blood Cell Count 8.34 K/mm3 (4.00-11.30)
--- NOTE | 2018-10-29 05:00 | NUR ---
SHIFT SUMMARY: PT STABLE THROUGHOUT SHIFT. SOB WITH EXERTION. RECIEVING BREATHING TREATMENTS Q4. HR TACHY, O2 SATS 93% ON 1L VIA NC. COUGHING T/O SHIFT, PT REPORTS IT IS SOMETIMES PRODUCTIVE WITH GREENISH-YELLOW SPUTUM. GIVEN SCHED ABX PER EMAR. PT INDEPENDENT IN ROOM.
--- NOTE | 2018-10-29 07:30 | NUR ---
PT AWAKE LAYING IN BED STATED HE IS HAVING AN OCC PROD COUGH YELLOW TO GREEN SOB WITH TALKING AND AMB STILL AND EATING FOOD PAIN ONLY IN HIS BACK WITH COUGH
--- NOTE | 2018-10-29 10:36 | NUR ---
PT GETTING NEB TX WITH RT
--- NOTE | 2018-10-29 14:54 | NUR ---
PT BACK FROM CT VIA WC
--- NOTE | 2018-10-29 17:46 | NUR ---
pt eating dinner meds given as sched
--- NOTE | 2018-10-30 07:18 | NUR ---
PT HAD NO ACUTE CHANGES T/O NIGHT; VSS. SATS 94-96% ON RA WHILE AT REST, PT USING 1LNC PRN W/EXRTION. LUNGS REMAIN WHEEZY T/O, PT DOES HAVE OCC PROD COUGH. PT REP WOB IS SLOWLY IMPROVING. PT DAVID REG PO, IS VOIDING URINE W/O DIFFICULTY. PT USING CALL LIGHT FOR ASSISTANCE, REP GIVEN TO DAY RN.
--- NOTE | 2018-10-30 17:23 | NUR ---
SUMMARY: NO ACUTE CHANGE TODAY. VSS, TELE NSR. PT GIVEN Q4 ALBUTEROL, DENIES ANY SOB, CONTINUES TO BE WHEEZY IN UPPER LOBES, NO INCREASE IN BREATHING EFFORT. STABLE ON RA. 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 PT DENIES ANY SPUTUM. CONTINUING ABX AND STARTING PREDNISONE TOMORROW. WILL CTM AND REPORT TO ADAM GOLD.
--- NOTE | 2018-10-31 06:08 | NUR ---
PT VSS T/O NIGHT; SATS >95% ON RA. PT CONT TO HAVE SOME DYPSNEA W/EXERTION, REP WOB IMPROVING, LUNGS DIM W/EXP WHEEZING, COUGH MIN PROD. HR SINUS 90'S PER TELE MONITOR. PT DAVID REG PO, NO C/O N/V, IS VOIDING W/O DIFFICULTY. PT AMB INDEP IN ROOM, WAS AWAKE ALL NIGHT, WENT TO SLEEP AFTER 0500 THIS AM. PT VERBALIZED CONCERN R/T FINANCIAL DIFFICULTIES OBTAINING HOME MEDICATIONS. PT EDUCATED ON RESOURCES, ENC TO CONTACT PT ADVOCATE FOR FURTHER ASSISTANCE. WILL CONT TO MONITOR UNTIL REP GIVEN TO DAY RN.
[2018-10-31] MEDS ORDERED: PRED10 PO (12:30)
[2018-10-31] MEDS ORDERED: FLUTICASONE-SA1 EAC1 INH (12:31)
[2018-10-31] MEDS ORDERED: ALBU2.5V5 NEB (12:34)
[2018-10-31] MEDS ORDERED: CEFU500T30 PO (12:36)
--- NOTE | 2018-10-31 15:38 | NUR ---
ON PHONE WITH [facility] AT THIS TIME, FILLING PT SCRIPTS
--- NOTE | 2018-10-31 17:42 | NUR ---
PT GIVEN DC PAPERWORK AND EDUCATED, MEDICATIONS CALLED TO [facility]. PT IV AND TELE DC'D AND PT LEFT UNIT BY FOOT AT 1538
[2019-01-16] MEDS ORDERED: ALBU2.5V5 INH (07:18)
[2019-01-16] MEDS ORDERED: PRED20 PO (07:43)
[2019-01-16] MEDS ORDERED: ALBU90OI INH (07:43)
== END 2018-10-31 15:54 | disposition home or self-care (01) | DRG 871 ==
LOC: ER 22:41 → SURS 23:58
PROVIDERS: Emergency Medicine; ADMIT Hospitalist
PROC: 5A09357 Assistance with Respiratory Ventilation, Less than 24 Consecutive Hours, Continuous Positive Airway Pressure (ICD-10-PCS; principal; 2018-10-27)
DX: A41.9 Sepsis, unspecified organism (principal); J18.1 Lobar pneumonia, unspecified organism; J45.901 Unspecified asthma with (acute) exacerbation; I10 Essential (primary) hypertension; K21.9 Gastro-esophageal reflux disease without esophagitis; E66.9 Obesity, unspecified; Z87.891 Personal history of nicotine dependence
CPT/HCPCS: 36415; 71045; 71260; 80053; 83605; 84145; 85025; 87040; 94640; 94644; 94760; 96365; 96367; 96375; 99285-25; J0456; J0696; J1100; J2930; J7030; J7050; J7512; Q9967

== ENCOUNTER 2018-12-31 06:42 | Emergency (ER) | payer SELFPAY ==
[~2018-12-31] VITALS: Ht 177.8 cm; Wt 106.6 kg
[~2018-12-31 06:42] MED LIST changes: +ALBU90OI6 INH; +CEFU500T30 PO; +FLUTICASONE-SA1 EAC1 INH
[2018-12-31] MEDS ORDERED: ALBU90OI INH (07:31)
[2019-01-16] MEDS ORDERED: ALBU2.5V5 INH (07:18)
[2019-01-16] MEDS ORDERED: PRED20 PO (07:43)
[2019-01-16] MEDS ORDERED: ALBU90OI INH (07:43)
== END 2018-12-31 07:40 | disposition home or self-care (01) ==
LOC: ER 06:42
DX: J45.901 Unspecified asthma with (acute) exacerbation (principal); I10 Essential (primary) hypertension; K21.9 Gastro-esophageal reflux disease without esophagitis; Z91.011 Allergy to milk products; Z91.048 Other nonmedicinal substance allergy status
CPT/HCPCS: 94640; 99284-25

== ENCOUNTER 2019-01-31 06:10 | Emergency (ER) | payer SELFPAY ==
[~2019-01-31] VITALS: Ht 180.3 cm; Wt 107.5 kg
[~2019-01-31 06:10] MED LIST changes: +ALBU2.5V5 INH
[2019-01-31] MEDS ORDERED: ALBU90OI INH (09:46)
[2019-01-31] MEDS ORDERED: Prednisone20 MG PO (09:46)
== END 2019-01-31 09:54 | disposition home or self-care (01) ==
LOC: ER 06:10
DX: J45.901 Unspecified asthma with (acute) exacerbation (principal); I10 Essential (primary) hypertension; F17.200 Nicotine dependence, unspecified, uncomplicated; Z91.011 Allergy to milk products; Z91.048 Other nonmedicinal substance allergy status; Z79.899 Other long term (current) drug therapy; Z79.52 Long term (current) use of systemic steroids
CPT/HCPCS: 94640; 94644; 96361; 96374; 99284-25; J1100; J7030

== ENCOUNTER 2019-03-26 12:25 | Emergency (ER) | payer SELFPAY ==
[~2019-03-26] VITALS: Ht 180.3 cm; Wt 104.3 kg
[2019-03-26] MEDS ORDERED: ALBU90OI INH (13:13)
[2019-03-26] MEDS ORDERED: Prednisone20 MG PO (13:13)
== END 2019-03-26 13:25 | disposition home or self-care (01) ==
LOC: ER 12:25
DX: J45.901 Unspecified asthma with (acute) exacerbation (principal); I10 Essential (primary) hypertension; F17.200 Nicotine dependence, unspecified, uncomplicated; Z79.899 Other long term (current) drug therapy
CPT/HCPCS: 94640; 99283-25; J7512

== ENCOUNTER 2019-05-09 02:33 | Emergency (ER) | payer BC ==
[~2019-05-09] VITALS: Ht 177.8 cm; Wt 104.3 kg
[2019-05-09] MEDS ORDERED: ALBU90OI INH (02:57)
== END 2019-05-09 04:03 | disposition home or self-care (01) ==
LOC: ER 02:33
DX: J45.901 Unspecified asthma with (acute) exacerbation (principal); I10 Essential (primary) hypertension; K21.9 Gastro-esophageal reflux disease without esophagitis; R00.0 Tachycardia, unspecified; Z91.011 Allergy to milk products; F17.210 Nicotine dependence, cigarettes, uncomplicated
CPT/HCPCS: 94640; 99283-25

== ENCOUNTER 2019-05-29 04:00 | Emergency (ER) | payer BC ==
[~2019-05-29] VITALS: Ht 177.8 cm; Wt 104.3 kg
[2019-05-29] MEDS ORDERED: ALBU90OI INH (05:47)
[2019-05-29] MEDS ORDERED: Prednisone20 MG PO (05:47)
== END 2019-05-29 06:17 | disposition home or self-care (01) ==
LOC: ER 04:00
DX: J45.901 Unspecified asthma with (acute) exacerbation (principal); I10 Essential (primary) hypertension; K21.9 Gastro-esophageal reflux disease without esophagitis; Z91.011 Allergy to milk products; Z87.891 Personal history of nicotine dependence
CPT/HCPCS: 71045; 94644; 99283-25; J1100

== ENCOUNTER 2019-06-12 22:38 | Emergency (ER) | payer BC ==
[~2019-06-12] VITALS: Ht 180.3 cm; Wt 104.3 kg
== END 2019-06-13 00:24 | disposition home or self-care (01) ==
LOC: ER 22:38
DX: J45.909 Unspecified asthma, uncomplicated (principal); I10 Essential (primary) hypertension; K21.9 Gastro-esophageal reflux disease without esophagitis; F17.210 Nicotine dependence, cigarettes, uncomplicated; Z91.011 Allergy to milk products; Z91.048 Other nonmedicinal substance allergy status; Z79.51 Long term (current) use of inhaled steroids
CPT/HCPCS: 71046; 94640; 99283-25

== ENCOUNTER 2019-06-28 21:09 | Emergency (ER) | payer BC ==
[~2019-06-28] VITALS: Ht 180.3 cm; Wt 104.3 kg
[2019-06-28] MEDS ORDERED: Prednisone20 MG PO (21:44)
== END 2019-06-28 21:54 | disposition home or self-care (01) ==
LOC: ER 21:09
DX: J45.901 Unspecified asthma with (acute) exacerbation (principal); I10 Essential (primary) hypertension; K21.9 Gastro-esophageal reflux disease without esophagitis; F17.210 Nicotine dependence, cigarettes, uncomplicated; Z91.011 Allergy to milk products; Z91.048 Other nonmedicinal substance allergy status
CPT/HCPCS: 71046; 94640; 99283-25

== ENCOUNTER 2019-07-02 22:14 | Emergency (ER) | payer BC ==
[~2019-07-02] VITALS: Ht 180.3 cm; Wt 104.3 kg
[2019-07-02] MEDS ORDERED: PRED20 (23:41)
[2019-07-02] MEDS ORDERED: Ventolin/Prove6.7 GM (23:41)
[2019-07-03] MEDS ORDERED: Prednisone20 MG PO (00:25)
[2019-07-03] MEDS ORDERED: Zithromax250 MG PO (00:25)
== END 2019-07-03 00:47 | disposition home or self-care (01) ==
LOC: ER 22:14
DX: J45.901 Unspecified asthma with (acute) exacerbation (principal); Z91.048 Other nonmedicinal substance allergy status; Z91.011 Allergy to milk products; I10 Essential (primary) hypertension; F17.210 Nicotine dependence, cigarettes, uncomplicated
CPT/HCPCS: 71046; 94640; 99283-25; J7512

== ENCOUNTER 2019-07-11 10:35 | Emergency (ER) | payer BC ==
[~2019-07-11] VITALS: Ht 180.3 cm; Wt 104.3 kg
[~2019-07-11 10:35] MED LIST changes: +PRED20; +Ventolin/Prove6.7 GM; +Zithromax250 MG PO
[2019-07-11] MEDS ORDERED: ALBU90OI INH (11:36)
== END 2019-07-11 12:26 | disposition home or self-care (01) ==
LOC: ER 10:35
DX: J45.909 Unspecified asthma, uncomplicated (principal); Z76.0 Encounter for issue of repeat prescription; Z91.011 Allergy to milk products; Z91.048 Other nonmedicinal substance allergy status; Z79.899 Other long term (current) drug therapy; Z79.52 Long term (current) use of systemic steroids; I10 Essential (primary) hypertension; F17.210 Nicotine dependence, cigarettes, uncomplicated
CPT/HCPCS: 94640; 99283-25

== ENCOUNTER 2019-07-27 22:47 | Emergency (ER) | payer BC, OTHER ==
[~2019-07-27] VITALS: Ht 177.8 cm; Wt 106.6 kg
[2019-07-27] MEDS ORDERED: ALBU90OI INH (23:00)
== END 2019-07-27 23:05 | disposition home or self-care (01) ==
LOC: ER 22:47
DX: J45.909 Unspecified asthma, uncomplicated (principal); F17.210 Nicotine dependence, cigarettes, uncomplicated; Z91.011 Allergy to milk products; Z91.048 Other nonmedicinal substance allergy status; Z79.51 Long term (current) use of inhaled steroids
CPT/HCPCS: 99283

== ENCOUNTER 2019-08-13 11:50 | Emergency (ER) | payer BC ==
[2019-08-13] MEDS ORDERED: PRED20 PO (14:21)
[2019-08-13] MEDS ORDERED: ALBU2.5V5 INH (14:21)
[2019-08-13] MEDS ORDERED: ALBU90OI INH (14:21)
[2019-08-13] MEDS ORDERED: NICO2 PO (14:21)
== END 2019-08-13 14:29 | disposition home or self-care (01) ==
LOC: ER 11:50
DX: J45.901 Unspecified asthma with (acute) exacerbation (principal); I10 Essential (primary) hypertension; K21.9 Gastro-esophageal reflux disease without esophagitis; F17.200 Nicotine dependence, unspecified, uncomplicated; Z79.899 Other long term (current) drug therapy; Z79.51 Long term (current) use of inhaled steroids
CPT/HCPCS: 99283-25; J7512

== ENCOUNTER 2019-08-18 19:51 | Emergency (ER) | payer BC ==
[~2019-08-18] VITALS: Ht 177.8 cm; Wt 104.3 kg
[~2019-08-18 19:51] MED LIST changes: +NICO2 PO
[2019-08-18] MEDS ORDERED: ALBU90OI INH (21:34)
[2019-08-18] MEDS ORDERED: Prednisone50 MG PO (21:34)
== END 2019-08-18 21:48 | disposition home or self-care (01) ==
LOC: ER 19:51
DX: J45.901 Unspecified asthma with (acute) exacerbation (principal); F17.200 Nicotine dependence, unspecified, uncomplicated; I10 Essential (primary) hypertension; K21.9 Gastro-esophageal reflux disease without esophagitis; Z79.899 Other long term (current) drug therapy; Z91.011 Allergy to milk products
CPT/HCPCS: 71045; 94644; 96374; 99283-25; J1100

== ENCOUNTER 2019-09-25 13:11 | Emergency (ER) | payer BC ==
[~2019-09-25] VITALS: Ht 177.8 cm; Wt 104.3 kg
[2019-09-25] MEDS ORDERED: ALBU90OI INH (14:21)
== END 2019-09-25 14:39 | disposition home or self-care (01) ==
LOC: ER 13:11
DX: J45.901 Unspecified asthma with (acute) exacerbation (principal); Z76.0 Encounter for issue of repeat prescription; I10 Essential (primary) hypertension; F17.210 Nicotine dependence, cigarettes, uncomplicated
CPT/HCPCS: 94640; 99283-25

== ENCOUNTER 2019-10-05 02:37 | Emergency (ER) | payer BC ==
[~2019-10-05] VITALS: Ht 180.3 cm; Wt 104.3 kg
[2019-10-05] MEDS ORDERED: Prednisone50 MG PO (04:14)
[2019-10-05] MEDS ORDERED: ALBU2.5V5 INH (04:17)
== END 2019-10-05 04:33 | disposition home or self-care (01) ==
LOC: ER 02:37
DX: J45.901 Unspecified asthma with (acute) exacerbation (principal); I10 Essential (primary) hypertension; K21.9 Gastro-esophageal reflux disease without esophagitis; F17.200 Nicotine dependence, unspecified, uncomplicated; Z91.011 Allergy to milk products; Z91.048 Other nonmedicinal substance allergy status; Z79.899 Other long term (current) drug therapy
CPT/HCPCS: 71045; 94644; 99283-25; J1100

== ENCOUNTER 2019-10-18 02:10 | Emergency (ER) | payer BC, OTHER ==
[~2019-10-18] VITALS: Ht 180.3 cm; Wt 104.3 kg
[2019-10-18] MEDS ORDERED: ALBU90OI INH (03:49)
== END 2019-10-18 04:37 | disposition home or self-care (01) ==
LOC: ER 02:10
DX: J45.901 Unspecified asthma with (acute) exacerbation (principal); F17.210 Nicotine dependence, cigarettes, uncomplicated; Z91.011 Allergy to milk products; Z91.048 Other nonmedicinal substance allergy status; Z79.52 Long term (current) use of systemic steroids; Z79.899 Other long term (current) drug therapy; I10 Essential (primary) hypertension; K21.9 Gastro-esophageal reflux disease without esophagitis
CPT/HCPCS: 94640; 99284

== ENCOUNTER 2019-11-07 22:27 | Inpatient (IN) | payer BC, OTHER ==
[~2019-11-07] VITALS: Ht 180.3 cm; Wt 104.9 kg
[~2019-11-07 22:27] MED LIST changes: +FLUT1DIS2 INH; +Ventolin/Prove6.7 GM INH
[2019-11-07 22:57] LABS: BASOPHILS ABSOLUTE AUTO 0.09 K/mm3 (0.00-0.23); BASOPHILS PERCENT AUTO 0 % (0-2); EOSINOPHILS ABSOLUTE AUTO 0.28 K/mm3 (0.00-0.68); EOSINOPHILS PERCENT AUTO 1 % (0-6); Hematocrit 54.9 % (37.0-53.0); Hemoglobin 17.6 g/dL (13.5-17.5); IMMATURE GRAN ABSOLUTE AUTO 0.18 K/mm3 (0.00-0.10); IMMATURE GRAN PERCENT AUTO 1 % (0-1); LYMPHOCYTES ABSOLUTE AUTO 1.62 K/mm3 (0.84-5.20); LYMPHOCYTES PERCENT AUTO 8 % (21-46); MONOCYTES ABSOLUTE AUTO 1.01 K/mm3 (0.16-1.47); MONOCYTES PERCENT AUTO 5 % (4-13); Mean Corpuscular HGB 31.1 pg (26.0-34.0); Mean Corpuscular HGB Conc 32.1 g/dL (31.5-36.5); Mean Corpuscular Volume 97 fL (80-100); Mean Platelet Volume 9.7 fL (9.1-12.4); NEUTROPHILS ABSOLUTE AUTO 17.29 K/mm3 (1.96-9.15); NEUTROPHILS PERCENT AUTO 85 % (41-73); Platelet Count 167 K/mm3 (150-400); RDW Coefficient Variation 12.7 % (11.7-14.2); RDW Standard Deviation 45.5 fL (35.1-46.3); Red Blood Cell Count 5.66 M/mm3 (4.30-5.90); White Blood Cell Count 20.47 K/mm3 (4.00-11.30)
[2019-11-07 23:16] LABS: Alanine Aminotransfer (ALT/SGP 38 U/L (12-78); Alk Phos 106 U/L (50-136); Anion Gap 5 mmol/L (6-16); Aspartate Aminotrans (AST/SGOT 30 U/L (12-37); Bilirubin, Total 1.5 mg/dL (0.1-1.0); Blood Urea Nitrogen 15 mg/dL (8-24); Bun/Creatinine Ratio 15.5 (12.0-20.0); CO2, Blood 28 mmol/L (21-32); Calcium, Blood 8.5 mg/dL (8.5-10.1); Chloride, Blood 107 mmol/L (98-108); Creatinine, Blood 0.97 mg/dL (0.60-1.20); Globulin, Blood 4.1 g/dL (2.2-4.0); Glomerular Filtration Rate >60 (60-); Glucose, Blood 103 mg/dL (70-99); Potassium, Blood 3.9 mmol/L (3.5-5.5); Sodium, Blood 140 mmol/L (136-145); Total Protein, Blood 8.1 g/dL (6.4-8.2)
[2019-11-07 23:17] LABS: PO2 Arterial 74.6 mmHg (80-100); pH Blood Arterial 7.39 (7.35-7.45)
--- NOTE | 2019-11-08 02:47 | NUR ---
ASSUMED PT CARE AT 0145 PT ARRIVED ON STRETCHER WITH BIPAP IN PLACE; 04/02; 30%. PT ALERT AND ORIENTED AND ABLE TO MAKE NEEDS KNOWN. STAND PIVOT TRANSFER FROM GURNEY TO BED WITH VERBAL CUES ONLY. PT IS VERY SOB; CAN NOT TOLERATE BREAKS FROM BIPAP, NOR LYING FLAT. SITTING UPRIGHT IN BED. PT NOTED TO BE SINUS TACHYCARDIA WITH HR 150'S UPON ADMIT; BP'S STABLE, SEE FLOWSHEET. LUNG SOUNDS ARE WHEEZES T/O, WELL COARSE LUNG SOUNDS NOTED TO BILATERAL LOWER LOBES. PT IS DIAPHORETIC AND FLUSHED AT THIS TIME. PULSES ARE PALPABLE AND STRONG. NO SKIN BREAKDOWN; HOWEVER, TOES TO BILATERAL FEET ARE NOTED TO HAVE A BLACK TINGE/DISCOLORATION TO THEM. PT STATES THIS IS FROM HIS WORK SHOES. STATES HE HASN'T BEEN EXPOSED TO ANY NEW ALLERGENS THAT HE IS AWARE OF. STATES HE HAS CUT BACK HIS CIGARETTE SMOKING TO 1-2 CIGARETTES/WEEK INSTEAD OF DAILY. HE ALSO STATES THAT HE WORKS AT [employer] AND SOME OF THE CHEMICALS THEY USE TO CLEAN DON'T HELP HIS SITUATION EITHER. PT IS VERY PLEASANT WITH CARES. CALL LIGHT WITHIN REACH; ABLE TO MAKE NEEDS KNOWN.
[2019-11-08 04:15] LABS: Adenovirus Not Detected (NOT DETECT); Bordetella pertussis Not Detected (NOT DETECT); Chlamydophila pneumoniae Not Detected (NOT DETECT); Coronavirus 229E Not Detected (NOT DETECT); Coronavirus HKU1 Not Detected (NOT DETECT); Coronavirus NL63 Not Detected (NOT DETECT); Coronavirus OC43 Not Detected (NOT DETECT); Human Metapneumovirus Not Detected (NOT DETECT); Human Rhinovirus/Enterovirus Detected (NOT DETECT); Influenza A/2009-H1 Not Detected (NOT DETECT); Influenza A/H1 Not Detected (NOT DETECT); Influenza A/H3 Not Detected (NOT DETECT); Influenza B Not Detected (NOT DETECT); Mycoplasma pneumoniae Not Detected (NOT DETECT); Parainfluenza Virus 1 Not Detected (NOT DETECT); Parainfluenza Virus 2 Not Detected (NOT DETECT); Parainfluenza Virus 3 Not Detected (NOT DETECT); Parainfluenza Virus 4 Not Detected (NOT DETECT); Respiratory Syncytial Virus Not Detected (NOT DETECT)
--- NOTE | 2019-11-08 05:30 | NUR ---
END OF SHIFT SUMMARY NO SIGNIFICANT CHANGES SINCE LAST ENTRY. PT HAS BEEN SLEEPING SINCE SHORTLY AFTER ARRIVING ON UNIT. LACTIC ACID REFLUXED AT 4.9; THEREFORE, DR. PETIT CALLED WITH ORDERS TO START NS AT 75MLS/HR X1 LITER BAG. PT HAS REMAINED ON BIPAP 12/5; FIO2 30%. LUNG SOUNDS REMAIN WITH WHEEZING T/O AND COARSE TO BILATERAL LOWER LOBES. PT STATES HE HAS A COUGH, BUT UNABLE TO PRODUCE ANY SPUTUM. HE HAS BEEN SINUS TACHYCARDIA SINCE ARRIVAL WITH HR 130-140'S WHILE AWAKE AND 120'S WHILE SLEEPING. BP'S STABLE, SEE FLOWSHEET. CALL LIGHT WITHIN REACH; PT IS ABLE TO MAKE HIS NEEDS KNOWN. WILL CONTINUE TO MONITOR UNTIL REPORT IS HANDED OFF TO ONCOMING RN.
--- NOTE | 2019-11-08 07:16 | NUR ---
REC'D BEDSIDE REPORT FROM ALLA JO AND AM NOW ASSUMING CARE OF THIS PT.
--- NOTE | 2019-11-08 08:28 | NUR ---
CALLED AND SPOKE WITH DR WEISS ABOUT PT'S WORK OF BREATHING. PT TO RECIEVE 1 HOUR LONG NEBULIZER TX. DOM, RT NOTIFIED, AND PT'S ALBUTEROL PRN TX'S INCREASED TO Q1H. ADDING PUMONARY TO THIS PT'S CASE. CALLED AND SPOKE WITH DR MYERS ABOUT PT'S STATUS. RT NOTIFIED TO OBTAIN VBG.
[2019-11-08 09:07] LABS: Base Excess Venous -8.9 mmol/L; Bicarbonate Venous 18.1 mmol/L (24.0-30.0); PCO2 Venous 36.2 mmHg (38-42); PO2 Venous 87.1 mmHg (38-42)
--- NOTE | 2019-11-08 09:15 | NUR ---
DR RAMSEH IN TO ASSESS PT. SEE NEW ORDERS. PT APPEARS MORE CALM. RR STATUS HAS SLOWED AND PT BREATHING MID-UPPER 20'S AND REPORTS HIS WORK OF BREATHING HAS DECREASED. PT DOING WELL WITH TOLERATING BIPAP.
--- NOTE | 2019-11-08 09:50 | NUR ---
ISTRATE IN TO ASSESS PT, UPDATED WITH PT'S CURRENT STATUS. NO NEW ORDERS AT THIS TIME.
--- NOTE | 2019-11-08 09:55 | NUR ---
DR RAMESH AT THE BEDSIDE TO DO CONSULT. UPDATED WITH PT'S STATUS. SEE NEW ORDERS.
[2019-11-08 11:37] LABS: BASOPHILS ABSOLUTE AUTO 0.03 K/mm3 (0.00-0.23); BASOPHILS PERCENT AUTO 0 % (0-2); EOSINOPHILS PERCENT AUTO 0 % (0-6); Hematocrit 47.7 % (37.0-53.0); Hemoglobin 15.2 g/dL (13.5-17.5); IMMATURE GRAN ABSOLUTE AUTO 0.15 K/mm3 (0.00-0.10); IMMATURE GRAN PERCENT AUTO 1 % (0-1); LYMPHOCYTES ABSOLUTE AUTO 0.25 K/mm3 (0.84-5.20); LYMPHOCYTES PERCENT AUTO 1 % (21-46); MONOCYTES ABSOLUTE AUTO 0.25 K/mm3 (0.16-1.47); MONOCYTES PERCENT AUTO 1 % (4-13); Mean Corpuscular HGB 31.1 pg (26.0-34.0); Mean Corpuscular HGB Conc 31.9 g/dL (31.5-36.5); Mean Corpuscular Volume 98 fL (80-100); Mean Platelet Volume 9.9 fL (9.1-12.4); NEUTROPHILS ABSOLUTE AUTO 19.36 K/mm3 (1.96-9.15); NEUTROPHILS PERCENT AUTO 97 % (41-73); Platelet Count 129 K/mm3 (150-400); RDW Coefficient Variation 13.1 % (11.7-14.2); RDW Standard Deviation 47.3 fL (35.1-46.3); Red Blood Cell Count 4.89 M/mm3 (4.30-5.90); White Blood Cell Count 20.04 K/mm3 (4.00-11.30)
--- NOTE | 2019-11-08 11:39 | NUR ---
PT UPDATE: PT REMAINS OFF BIPAP AND DOING WELL ON 3L 02 VIA N/C. SP02 >90%. RR REMAINS IMPROVED AND WORK OF BREATHING IS LESS. PT GIVEN SOME WATER AND DID WELL WITH THAT. PT PROVIDED WITH A SNACK AND LATE LUNCH ORDERED AND PENDING.
[2019-11-08 11:51] LABS: Alanine Aminotransfer (ALT/SGP 33 U/L (12-78); Albumin, Blood 3.4 g/dL (3.4-5.0); Albumin/Globulin Ratio 0.9 (0.8-1.8); Alk Phos 79 U/L (50-136); Anion Gap 9 mmol/L (6-16); Aspartate Aminotrans (AST/SGOT 24 U/L (12-37); Bilirubin, Total 0.8 mg/dL (0.1-1.0); Blood Urea Nitrogen 16 mg/dL (8-24); Bun/Creatinine Ratio 20.6 (12.0-20.0); CO2, Blood 22 mmol/L (21-32); Calcium, Blood 8.1 mg/dL (8.5-10.1); Chloride, Blood 108 mmol/L (98-108); Creatinine, Blood 0.78 mg/dL (0.60-1.20); Globulin, Blood 3.8 g/dL (2.2-4.0); Glomerular Filtration Rate >60 (60-); Glucose, Blood 246 mg/dL (70-99); Sodium, Blood 139 mmol/L (136-145); Total Protein, Blood 7.2 g/dL (6.4-8.2)
--- NOTE | 2019-11-08 17:13 | NUR ---
SHIFT SUMMARY: PT MUCH IMPROVED T/O SHIFT. AFTER REC'ING A HOUR LONG NEBULIZER TX THIS AM, PT WAS ABLE TO BE TAKEN OFF OF BIPAP AND PLACED ON 5L 02 VIA N/C, AND SP02 >90%. PT CONTINUES TO BECOME DSYPNEIC WITH MINIMAL EXERTION, BUT SEEMS TO RECOVER MORE QUICKLY THIS AFTERNOON/EVENING. PT HAS OCCASIONAL, WET, NON-PRODUCTIVE COUGH. SPUTUM SPECIMEN NEEDED, SPECIMEN CUP AT THE BEDSIDE. LUNGS WITH CONTINUED EXP WHEEZES T/O BILATERALLY. PT INDEPENDENT IN ROOM AND CALLS APPROPRIATELY FOR NEEDS. PT NOW PCU STATUS AND WILL TNX TO PCU 7 WHEN THE RM IS AVAILABLE.
--- NOTE | 2019-11-08 18:15 | NUR ---
REPORTED OFF TO ALLA DE LA TORRE WHOM WILL ASSUME CARE OF THIS PT ONCE TNX'D TO PCU-7.
--- NOTE | 2019-11-08 18:39 | NUR ---
PT TNX'D TO PCU 7: PT TNX'D BY ALLA CLARK PER W/C. ALL PT BELONGINGS, AND CHART SENT WITH PT TO NEW ROOM. ALLA DE LA TORRE PRESENT IN ROOM. PT GIVEN CALL LIGHT AND ORIENTED TO ROOM. CALLED RT TO MOVE BIPAP TO NEW ROOM.
--- NOTE | 2019-11-08 18:46 | NUR ---
RECEIVED REPORT FROM ALLA SCHAEFER IN ICU; PT TO ROOM AT 1833. IND TRANSFER TO BED. PT ORIENTED TO ROOM AND CALL LIGHT. PT A&Ox4; CALM AND COOPERATIVE WITH CARE. SPO2>90% ON 3L O2 VIA NC, INS/EXP WHEEZES T/O. PER TELE SINUS TACH 110'S. AGREE WITH PREVIOUS ASSESSMENTS. VSS. NO OTHER ACUTE CHANGES NOTED DURING SHIFT. WILL CONTINUE TO MONITOR UNITL REPORT GIVEN TO ONCOMING RN.
[2019-11-09 03:49] LABS: Base Excess Venous -0.1 mmol/L; Bicarbonate Venous 24.4 mmol/L (24.0-30.0); PCO2 Venous 36.3 mmHg (38-42); PO2 Venous 53.5 mmHg (38-42); pH Blood Venous 7.43 (7.34-7.37)
[2019-11-09 03:54] LABS: BASOPHILS ABSOLUTE AUTO 0.03 K/mm3 (0.00-0.23); BASOPHILS PERCENT AUTO 0 % (0-2); EOSINOPHILS PERCENT AUTO 0 % (0-6); Hemoglobin 14.5 g/dL (13.5-17.5); IMMATURE GRAN ABSOLUTE AUTO 0.12 K/mm3 (0.00-0.10); IMMATURE GRAN PERCENT AUTO 1 % (0-1); LYMPHOCYTES ABSOLUTE AUTO 0.47 K/mm3 (0.84-5.20); LYMPHOCYTES PERCENT AUTO 2 % (21-46); MONOCYTES ABSOLUTE AUTO 0.34 K/mm3 (0.16-1.47); MONOCYTES PERCENT AUTO 1 % (4-13); Mean Corpuscular HGB 31.3 pg (26.0-34.0); Mean Corpuscular HGB Conc 32.2 g/dL (31.5-36.5); Mean Corpuscular Volume 97 fL (80-100); Mean Platelet Volume 9.9 fL (9.1-12.4); NEUTROPHILS ABSOLUTE AUTO 22.62 K/mm3 (1.96-9.15); NEUTROPHILS PERCENT AUTO 96 % (41-73); Platelet Count 135 K/mm3 (150-400); RDW Coefficient Variation 12.7 % (11.7-14.2); RDW Standard Deviation 45.5 fL (35.1-46.3); Red Blood Cell Count 4.64 M/mm3 (4.30-5.90); White Blood Cell Count 23.58 K/mm3 (4.00-11.30)
[2019-11-09 04:10] LABS: Alanine Aminotransfer (ALT/SGP 33 U/L (12-78); Albumin, Blood 3.3 g/dL (3.4-5.0); Alk Phos 70 U/L (50-136); Anion Gap 4 mmol/L (6-16); Aspartate Aminotrans (AST/SGOT 23 U/L (12-37); Bilirubin, Total 0.6 mg/dL (0.1-1.0); Blood Urea Nitrogen 16 mg/dL (8-24); Bun/Creatinine Ratio 21.5 (12.0-20.0); CO2, Blood 26 mmol/L (21-32); Calcium, Blood 8.2 mg/dL (8.5-10.1); Chloride, Blood 110 mmol/L (98-108); Creatinine, Blood 0.75 mg/dL (0.60-1.20); Globulin, Blood 3.3 g/dL (2.2-4.0); Glomerular Filtration Rate >60 (60-); Glucose, Blood 144 mg/dL (70-99); Potassium, Blood 4.2 mmol/L (3.5-5.5); Sodium, Blood 140 mmol/L (136-145); Total Protein, Blood 6.6 g/dL (6.4-8.2)
--- NOTE | 2019-11-09 05:11 | NUR ---
END OF SHIFT SUMMARY NO ACUTE CHANGES THIS SHIFT. VSS. HAS REMAINED ON 3LNC ALL NIGHT WITH SPO2 94%. HAS NOT REQUIRED BIAPAP. LUNG SOUNDS WHEEZY BILATERALLY AND COARSE IN BASES. RECEIVING RT TREATMENTS ORDERED. PT HAS SLEPT T/O MUCH OF SHIFT AND HAS BEEN COOPERATIVE WITH CARE. WILL CONTINUE TO MONITOR UNTIL SHIFT CHANGE.
--- NOTE | 2019-11-09 07:52 | NUR ---
pt laying in bed awake a/ox3, pleasant and cooperative with care, follows commands well, denies pain, states he slept well last night, lungs have insp and exp wheezing t/o, resp even and unlabord, no cough noted, he reports a nonproductive occ cough, is currently on 3 liters 02 via n/c, hrr, bounding, no edema noted, ppp+2, cap refill <3sec, v.s. stable, afebrile, iv site is clear and patent, s.l. btx4, abd flat soft nontender, reports he voids without diff, skin c/w/d, maew, guy, call light in reach.
--- NOTE | 2019-11-09 12:12 | NUR ---
PT UP TO SHOWER, STATES HE'S FEELING GOOD, NO COMPLAINTS, GOT INTO THE SHOWER, IS INDEP. CALL LIGHT IN REACH.
--- NOTE | 2019-11-09 16:24 | NUR ---
PT HAS BEEN TRANSFERRED TO MEDICAL FLOOR VIA WHEELCHAIR WITH NURSE HARPER IN ATTENDENCE. HE HAS ALL BELONGINGS.
--- NOTE | 2019-11-09 17:06 | NUR ---
RECEIVED TO ROOM 355 FROM U AT 1630 BY W/C. ORIENTED TO ROOM. CALL LIGHT IN REACH. HE HAS NO COMPLAINTS. HE IS ON RA. HE SAYS HE FEELS A LOT BETTER THAN WHEN HE CAME TO THE HOSPITAL. NO OVERT RESPIRATORY DISTRESS. NO AUDIBLE WHEEZES AT THIS TIME. TELE WAS DC'D. LABS GENERALLY BETTER, BUT WBC'S ARE 23.5. NO FEVER.
--- NOTE | 2019-11-10 01:13 | NUR ---
SHIFT REVIEW PT HAS BEEN INDEP AND AMBULATORY THROUGH THE SHIFT. PLEASENT AND ALERT. HAS HAD 2 SNACKS AND USES THE BATHROOM INDEP. 3 VOIDS AND NO BM @ 0103 11/09
--- NOTE | 2019-11-10 05:36 | NUR ---
SHIFT SUMMARY ADMITTED FOR FOR ACUTE ASTHMA EXACERBATION. FULL CODE. INDEPENDENT IN ROOM. ON RA. SPUTUM SAMPLE RETRIEVED THIS SHIFT. REGULAR DIET/NO DAIRY. MAY DC HOME TODAY OR TOMORROW. NO NEW CONCERNS THIS SHIFT
[2019-11-10] MEDS ORDERED: ACET325 PO (10:22)
[2019-11-10] MEDS ORDERED: AIRDUO RESPICL1 EAC4 INH (10:23)
[2019-11-10] MEDS ORDERED: PROAIR RESPICL90 MCG INH (10:24)
[2019-11-10] MEDS ORDERED: PRED20 PO (10:26)
--- NOTE | 2019-11-10 15:26 | NUR ---
DISCHARGED AT 1213 WITH BELONGINGS. HIS CAR WAS IN THE PARKING LOT. HE HAS DENIED SOB, PAIN OR DIZZINESS. HE IS INDEPENDENT. HE HAD ANOTHER DOSE OF IV STEROID THIS MORNING. 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 HE UNDERSTANDS THE TAPER.
== END 2019-11-10 12:13 | disposition home or self-care (01) | DRG 871 ==
LOC: ER 22:27 → PCU 11-08 00:06 → ICUW 11-08 00:06 → PCU 11-08 18:06 → MEDS 11-09 16:14
PROVIDERS: Emergency Medicine; Family Medicine; Internal Medicine Pulmonary Disease; ADMIT Internal Medicine
PROC: 5A09357 Assistance with Respiratory Ventilation, Less than 24 Consecutive Hours, Continuous Positive Airway Pressure (ICD-10-PCS; principal; 2019-11-07)
DX: A41.9 Sepsis, unspecified organism (principal); J96.01 Acute respiratory failure with hypoxia; J45.901 Unspecified asthma with (acute) exacerbation; E87.2 Acidosis; R65.20 Severe sepsis without septic shock; F17.210 Nicotine dependence, cigarettes, uncomplicated; E66.9 Obesity, unspecified; J20.5 Acute bronchitis due to respiratory syncytial virus; Z68.32 Body mass index [BMI] 32.0-32.9, adult
CPT/HCPCS: 0099U; 36415; 36600; 71045; 80053; 82803; 83605; 84145; 85025; 86140; 87040; 87070; 87205; 93005; 93010; 94640; 94644; 94645; 94660; 94760; 94762; 96361; 96365; 96367; 96375; 99285-25; J0456; J0696; J1650; J2930; J3475; J7030; J7050; U0002

== ENCOUNTER 2020-01-23 05:34 | Emergency (ER) | payer BC, OTHER ==
[~2020-01-23] VITALS: Ht 177.8 cm; Wt 106.6 kg
[~2020-01-23 05:34] MED LIST changes: +ACET325 PO; +AIRDUO RESPICL1 EAC4 INH; +PROAIR RESPICL90 MCG INH
[2020-01-24] MEDS ORDERED: Prednisone20 MG PO (16:57)
== END 2020-01-23 06:40 | disposition home or self-care (01) ==
LOC: ER 05:34
DX: J45.901 Unspecified asthma with (acute) exacerbation (principal); I10 Essential (primary) hypertension; K21.9 Gastro-esophageal reflux disease without esophagitis; Z76.0 Encounter for issue of repeat prescription; Z91.011 Allergy to milk products; Z91.09 Other allergy status, other than to drugs and biological substances; Z79.899 Other long term (current) drug therapy; F17.200 Nicotine dependence, unspecified, uncomplicated
CPT/HCPCS: 94640; 99284-25

== ENCOUNTER 2020-01-24 15:05 | Emergency (ER) | payer BC, OTHER ==
[~2020-01-24] VITALS: Ht 180.3 cm; Wt 104.3 kg
[2020-01-24 16:14] LABS: BASOPHILS ABSOLUTE AUTO 0.07 K/mm3 (0.00-0.23); BASOPHILS PERCENT AUTO 1 % (0-2); EOSINOPHILS ABSOLUTE AUTO 0.49 K/mm3 (0.00-0.68); EOSINOPHILS PERCENT AUTO 7 % (0-6); Hematocrit 52.1 % (37.0-53.0); Hemoglobin 17.1 g/dL (13.5-17.5); IMMATURE GRAN ABSOLUTE AUTO 0.03 K/mm3 (0.00-0.10); IMMATURE GRAN PERCENT AUTO 0 % (0-1); LYMPHOCYTES ABSOLUTE AUTO 1.41 K/mm3 (0.84-5.20); LYMPHOCYTES PERCENT AUTO 19 % (21-46); MONOCYTES ABSOLUTE AUTO 0.56 K/mm3 (0.16-1.47); MONOCYTES PERCENT AUTO 8 % (4-13); Mean Corpuscular HGB 31.8 pg (26.0-34.0); Mean Corpuscular HGB Conc 32.8 g/dL (31.5-36.5); Mean Corpuscular Volume 97 fL (80-100); Mean Platelet Volume 10.1 fL (9.1-12.4); NEUTROPHILS ABSOLUTE AUTO 4.95 K/mm3 (1.96-9.15); NEUTROPHILS PERCENT AUTO 66 % (41-73); Platelet Count 149 K/mm3 (150-400); RDW Coefficient Variation 12.1 % (11.7-14.2); RDW Standard Deviation 43.7 fL (35.1-46.3); Red Blood Cell Count 5.38 M/mm3 (4.30-5.90); White Blood Cell Count 7.51 K/mm3 (4.00-11.30)
[2020-01-24 16:32] LABS: Anion Gap 5 mmol/L (6-16); Blood Urea Nitrogen 11 mg/dL (8-24); Bun/Creatinine Ratio 14.9 (12.0-20.0); CO2, Blood 26 mmol/L (21-32); Calcium, Blood 8.6 mg/dL (8.5-10.1); Chloride, Blood 113 mmol/L (98-108); Creatinine, Blood 0.74 mg/dL (0.60-1.20); Glomerular Filtration Rate >60 (60-); Glucose, Blood 77 mg/dL (70-99); Potassium, Blood 4.2 mmol/L (3.5-5.5); Sodium, Blood 144 mmol/L (136-145)
[2020-01-24] MEDS ORDERED: Prednisone20 MG PO (16:57)
== END 2020-01-24 17:44 | disposition home or self-care (01) ==
LOC: ER 15:05
PROVIDERS: Physician Assistant
DX: J96.91 Respiratory failure, unspecified with hypoxia (principal); J45.901 Unspecified asthma with (acute) exacerbation; I10 Essential (primary) hypertension; F17.210 Nicotine dependence, cigarettes, uncomplicated; Z91.011 Allergy to milk products; Z91.09 Other allergy status, other than to drugs and biological substances; Z79.899 Other long term (current) drug therapy
CPT/HCPCS: 36415; 80048; 85025; 93005; 93010; 94640; 94644; 96365; 96375; 99285-25; J2930; J3475; J7030

== ENCOUNTER 2020-02-11 21:44 | Emergency (ER) | payer BC, OTHER ==
[~2020-02-11] VITALS: Ht 180.3 cm; Wt 104.3 kg
[2020-02-12] MEDS ORDERED: Prednisone20 MG PO (00:54)
[2020-02-12] MEDS ORDERED: ALBU90OI INH (00:54)
== END 2020-02-12 02:11 | disposition home or self-care (01) ==
LOC: ER 21:44
DX: J45.901 Unspecified asthma with (acute) exacerbation (principal); I10 Essential (primary) hypertension; K21.9 Gastro-esophageal reflux disease without esophagitis; F17.210 Nicotine dependence, cigarettes, uncomplicated; Z91.011 Allergy to milk products; Z79.899 Other long term (current) drug therapy; Z79.52 Long term (current) use of systemic steroids; Z91.09 Other allergy status, other than to drugs and biological substances
CPT/HCPCS: 71045; 94640; 96365; 96375; 99283-25; J2930; J3475

== ENCOUNTER 2020-02-21 14:56 | Emergency (ER) | payer BC, OTHER ==
[~2020-02-21] VITALS: Ht 177.8 cm; Wt 104.3 kg
[2020-02-21] MEDS ORDERED: VITAMIN D310 MC4 (15:25)
[2020-02-21 16:01] LABS: BASOPHILS ABSOLUTE AUTO 0.05 K/mm3 (0.00-0.23); BASOPHILS PERCENT AUTO 1 % (0-2); EOSINOPHILS ABSOLUTE AUTO 0.25 K/mm3 (0.00-0.68); EOSINOPHILS PERCENT AUTO 2 % (0-6); Hematocrit 53.1 % (37.0-53.0); Hemoglobin 17.7 g/dL (13.5-17.5); IMMATURE GRAN ABSOLUTE AUTO 0.08 K/mm3 (0.00-0.10); IMMATURE GRAN PERCENT AUTO 1 % (0-1); LYMPHOCYTES ABSOLUTE AUTO 1.22 K/mm3 (0.84-5.20); LYMPHOCYTES PERCENT AUTO 12 % (21-46); MONOCYTES ABSOLUTE AUTO 0.85 K/mm3 (0.16-1.47); MONOCYTES PERCENT AUTO 8 % (4-13); Mean Corpuscular HGB Conc 33.3 g/dL (31.5-36.5); Mean Corpuscular Volume 96 fL (80-100); Mean Platelet Volume 9.7 fL (9.1-12.4); NEUTROPHILS ABSOLUTE AUTO 8.03 K/mm3 (1.96-9.15); NEUTROPHILS PERCENT AUTO 77 % (41-73); Platelet Count 162 K/mm3 (150-400); RDW Coefficient Variation 12.1 % (11.7-14.2); Red Blood Cell Count 5.53 M/mm3 (4.30-5.90); White Blood Cell Count 10.48 K/mm3 (4.00-11.30)
[2020-02-21 16:28] LABS: Alanine Aminotransfer (ALT/SGP 35 U/L (12-78); Albumin/Globulin Ratio 1.1 (0.8-1.8); Alk Phos 101 U/L (50-136); Anion Gap 5 mmol/L (6-16); Aspartate Aminotrans (AST/SGOT 26 U/L (12-37); Bilirubin, Total 1.1 mg/dL (0.1-1.0); Blood Urea Nitrogen 13 mg/dL (8-24); Bun/Creatinine Ratio 13.8 (12.0-20.0); CO2, Blood 28 mmol/L (21-32); Chloride, Blood 111 mmol/L (98-108); Creatinine, Blood 0.94 mg/dL (0.60-1.20); Globulin, Blood 3.8 g/dL (2.2-4.0); Glomerular Filtration Rate >60 (60-); Glucose, Blood 86 mg/dL (70-99); Potassium, Blood 3.8 mmol/L (3.5-5.5); Sodium, Blood 144 mmol/L (136-145); Total Protein, Blood 7.8 g/dL (6.4-8.2); Troponin I <0.015 ng/mL (0.000-0.040)
[2020-02-21] MEDS ORDERED: FLUT1DIS5 INH (16:34)
[2020-02-21] MEDS ORDERED: AMOCLA875 PO (16:34)
[2020-02-21] MEDS ORDERED: Zithromax250 MG PO (16:34)
== END 2020-02-21 17:38 | disposition home or self-care (01) ==
LOC: ER 14:56
PROVIDERS: Emergency Medicine
DX: J18.9 Pneumonia, unspecified organism (principal); I10 Essential (primary) hypertension; J45.909 Unspecified asthma, uncomplicated; K21.9 Gastro-esophageal reflux disease without esophagitis; F17.210 Nicotine dependence, cigarettes, uncomplicated; Z20.828 Contact with and (suspected) exposure to other viral communicable diseases; Z79.899 Other long term (current) drug therapy
CPT/HCPCS: 36415; 71045; 80053; 84484; 85025; 93005; 93010; 96360; 96361; 99285-25; J7030; U0003

== ENCOUNTER 2020-02-27 19:56 | Emergency (ER) | payer BC ==
[~2020-02-27] VITALS: Ht 180.3 cm; Wt 104.3 kg
[~2020-02-27 19:56] MED LIST changes: +AMOCLA875 PO; +VITAMIN D310 MC4
== END 2020-02-27 22:10 | disposition home or self-care (01) ==
LOC: ER 19:56
DX: J18.9 Pneumonia, unspecified organism (principal); I10 Essential (primary) hypertension; K21.9 Gastro-esophageal reflux disease without esophagitis; J45.909 Unspecified asthma, uncomplicated; F17.200 Nicotine dependence, unspecified, uncomplicated; Z91.011 Allergy to milk products; Z91.09 Other allergy status, other than to drugs and biological substances; Z79.899 Other long term (current) drug therapy
CPT/HCPCS: 71046; 94640; 99283-25

== ENCOUNTER 2020-07-10 22:19 | Emergency (ER) | payer BC ==
[~2020-07-10] VITALS: Ht 177.8 cm; Wt 108.9 kg
[2020-07-10] MEDS ORDERED: ALBU90OI INH (23:12)
[2020-07-10] MEDS ORDERED: PRED20 PO (23:12)
== END 2020-07-10 23:23 | disposition home or self-care (01) ==
LOC: ER 22:19
DX: J45.901 Unspecified asthma with (acute) exacerbation (principal); F17.210 Nicotine dependence, cigarettes, uncomplicated; Z79.899 Other long term (current) drug therapy; Z91.011 Allergy to milk products; Z91.09 Other allergy status, other than to drugs and biological substances
CPT/HCPCS: 94640; 99284-25; A9270

== ENCOUNTER 2020-08-16 00:58 | Emergency (ER) | payer BC ==
[~2020-08-16] VITALS: Ht 177.8 cm; Wt 104.3 kg
[2020-08-16] MEDS ORDERED: Prednisone50 MG PO (05:18)
[2020-08-16] MEDS ORDERED: ALBU90OI61 INH (05:18)
== END 2020-08-16 05:25 | disposition home or self-care (01) ==
LOC: ER 00:58
DX: J45.901 Unspecified asthma with (acute) exacerbation (principal); I10 Essential (primary) hypertension; K21.9 Gastro-esophageal reflux disease without esophagitis; Z91.09 Other allergy status, other than to drugs and biological substances; Z91.011 Allergy to milk products; Z79.899 Other long term (current) drug therapy; Z87.891 Personal history of nicotine dependence
CPT/HCPCS: 71045; 94640; 94644; 94664; 96374; 99285-25; J2930; J7120

== ENCOUNTER 2020-09-20 13:57 | Emergency (ER) | payer BC ==
[~2020-09-20] VITALS: Ht 177.8 cm; Wt 104.3 kg
[2020-09-20] MEDS ORDERED: Prednisone20 MG PO (16:48)
[2020-09-20] MEDS ORDERED: ALBU2.5V5 INH (16:48)
== END 2020-09-20 16:59 | disposition home or self-care (01) ==
LOC: ER 13:57
DX: J45.901 Unspecified asthma with (acute) exacerbation (principal); I10 Essential (primary) hypertension; K21.9 Gastro-esophageal reflux disease without esophagitis; Z91.09 Other allergy status, other than to drugs and biological substances; Z79.899 Other long term (current) drug therapy; Z91.011 Allergy to milk products; Z87.891 Personal history of nicotine dependence
CPT/HCPCS: 36415; 94644; 96365; 96375; 99284-25; J2930; J3475; J7030

== ENCOUNTER 2020-10-20 00:53 | Emergency (ER) | payer BC ==
[~2020-10-20] VITALS: Ht 177.8 cm; Wt 106.6 kg
[2020-10-20] MEDS ORDERED: Prednisone50 MG PO (01:34)
== END 2020-10-20 01:46 | disposition home or self-care (01) ==
LOC: ER 00:53
DX: J45.909 Unspecified asthma, uncomplicated (principal); I10 Essential (primary) hypertension; K21.9 Gastro-esophageal reflux disease without esophagitis; Z91.011 Allergy to milk products; Z91.09 Other allergy status, other than to drugs and biological substances; Z79.899 Other long term (current) drug therapy; Z87.891 Personal history of nicotine dependence
CPT/HCPCS: 94640; 99283-25; A9270; J7512

== ENCOUNTER 2020-11-02 21:34 | Emergency (ER) | payer BC ==
[~2020-11-02] VITALS: Ht 177.8 cm; Wt 99.8 kg
[2020-11-02] MEDS ORDERED: ALBU90OI INH (22:14)
[2020-11-02] MEDS ORDERED: PRED20 PO (22:14)
== END 2020-11-03 04:29 | disposition home or self-care (01) ==
LOC: ER 21:34
DX: J45.901 Unspecified asthma with (acute) exacerbation (principal); Z79.899 Other long term (current) drug therapy
CPT/HCPCS: 94640; 99284-25; A9270; J7512

== ENCOUNTER 2021-01-20 21:52 | Emergency (ER) | payer BC ==
[~2021-01-20] VITALS: Ht 177.8 cm; Wt 106.6 kg
[2021-01-20 23:02] LABS: SARS-Cov-2 (COVID-19) PCR, MMC NEGATIVE (NEGATIVE)
[2021-01-20] MEDS ORDERED: ZYRTEC10 M2 PO (23:24)
[2021-01-21] MEDS ORDERED: ALBU90OI INH (00:27)
[2021-01-21] MEDS ORDERED: PRED20 PO (00:27)
[2021-01-21] MEDS ORDERED: ALBU2.5V5 INH (00:27)
== END 2021-01-21 01:36 | disposition home or self-care (01) ==
LOC: ER 21:52
PROVIDERS: Physician Assistant
DX: J45.901 Unspecified asthma with (acute) exacerbation (principal); J06.9 Acute upper respiratory infection, unspecified; Z20.822 Contact with and (suspected) exposure to COVID-19; I10 Essential (primary) hypertension; K21.9 Gastro-esophageal reflux disease without esophagitis; Z91.011 Allergy to milk products; Z91.048 Other nonmedicinal substance allergy status; Z79.899 Other long term (current) drug therapy
CPT/HCPCS: 71046; 94640; 94644; 99285-25; A9270; J7512; U0004

== ENCOUNTER 2021-02-22 19:28 | Emergency (ER) | payer BC ==
[~2021-02-22] VITALS: Ht 180.3 cm; Wt 104.3 kg
[~2021-02-22 19:28] MED LIST changes: +ZYRTEC10 M2 PO
[2021-02-22] MEDS ORDERED: PRED20 PO (22:24)
[2021-02-22] MEDS ORDERED: LEVO750 PO (22:24)
== END 2021-02-22 22:55 | disposition home or self-care (01) ==
LOC: ER 19:28
DX: J20.9 Acute bronchitis, unspecified (principal); Z20.822 Contact with and (suspected) exposure to COVID-19; I10 Essential (primary) hypertension; K21.9 Gastro-esophageal reflux disease without esophagitis; Z79.899 Other long term (current) drug therapy; Z91.011 Allergy to milk products; Z91.048 Other nonmedicinal substance allergy status
CPT/HCPCS: 71045; 94640; 99284-25; A9270; J7512

== ENCOUNTER 2021-03-06 01:47 | Emergency (ER) | payer BC ==
[~2021-03-06] VITALS: Ht 177.8 cm; Wt 105.7 kg
[2021-03-06] MEDS ORDERED: ALBU90OI INH (02:55)
== END 2021-03-06 03:08 | disposition home or self-care (01) ==
LOC: ER 01:47
DX: J45.901 Unspecified asthma with (acute) exacerbation (principal); I10 Essential (primary) hypertension; K21.9 Gastro-esophageal reflux disease without esophagitis; F17.200 Nicotine dependence, unspecified, uncomplicated; Z91.011 Allergy to milk products; Z91.048 Other nonmedicinal substance allergy status
CPT/HCPCS: 94640; 99285-25; A9270; J1100

== ENCOUNTER 2021-04-04 00:50 | Emergency (ER) | payer BC ==
[~2021-04-04] VITALS: Ht 177.8 cm; Wt 102.1 kg
[2021-04-04] MEDS ORDERED: ALBU90OI INH (02:13)
== END 2021-04-04 02:31 | disposition home or self-care (01) ==
LOC: ER 00:50
DX: J45.909 Unspecified asthma, uncomplicated (principal); Z76.0 Encounter for issue of repeat prescription; Z88.8 Allergy status to other drugs, medicaments and biological substances; Z91.011 Allergy to milk products; Z91.048 Other nonmedicinal substance allergy status; Z79.899 Other long term (current) drug therapy; K21.9 Gastro-esophageal reflux disease without esophagitis; F17.200 Nicotine dependence, unspecified, uncomplicated
CPT/HCPCS: 99281; A9270

== ENCOUNTER 2021-05-26 21:02 | Emergency (ER) | payer SELFPAY ==
[~2021-05-26] VITALS: Ht 177.8 cm; Wt 104.3 kg
[2021-05-26] MEDS ORDERED: PRED20 PO (23:57)
[2021-05-26] MEDS ORDERED: ALBU2.5V5 INH (23:57)
== END 2021-05-27 00:07 | disposition home or self-care (01) ==
LOC: ER 21:02
DX: J45.901 Unspecified asthma with (acute) exacerbation (principal); I10 Essential (primary) hypertension; K21.9 Gastro-esophageal reflux disease without esophagitis; F17.200 Nicotine dependence, unspecified, uncomplicated
CPT/HCPCS: 94640; 99284-25; A9270; J7512

== ENCOUNTER 2021-06-25 18:41 | Emergency (ER) | payer BC ==
[~2021-06-25] VITALS: Ht 177.8 cm; Wt 99.8 kg
[2021-06-25] MEDS ORDERED: Ventolin5 MG/1 ML INH (20:01)
== END 2021-06-25 20:19 | disposition home or self-care (01) ==
LOC: ER 18:41
DX: B34.9 Viral infection, unspecified (principal); J45.901 Unspecified asthma with (acute) exacerbation; I10 Essential (primary) hypertension; F17.210 Nicotine dependence, cigarettes, uncomplicated; Z79.899 Other long term (current) drug therapy; Z91.011 Allergy to milk products; Z91.048 Other nonmedicinal substance allergy status; Z20.822 Contact with and (suspected) exposure to COVID-19
CPT/HCPCS: 94640; 99283-25; A9270; J1100

== ENCOUNTER 2021-06-28 17:35 | Emergency (ER) | payer BC ==
[~2021-06-28] VITALS: Ht 177.8 cm; Wt 104.3 kg
[~2021-06-28 17:35] MED LIST changes: +Ventolin5 MG/1 ML INH
[2021-06-28] MEDS ORDERED: DEXA2 PO (19:35)
== END 2021-06-28 19:40 | disposition home or self-care (01) ==
LOC: ER 17:35
DX: J45.901 Unspecified asthma with (acute) exacerbation (principal); I10 Essential (primary) hypertension; K21.9 Gastro-esophageal reflux disease without esophagitis; F17.210 Nicotine dependence, cigarettes, uncomplicated; Z79.899 Other long term (current) drug therapy
CPT/HCPCS: 71045; 94640; 99285-25; J1100

== ENCOUNTER 2021-07-12 09:11 | Emergency (ER) | payer BC ==
[~2021-07-12] VITALS: Ht 177.8 cm; Wt 102.1 kg
[~2021-07-12 09:11] MED LIST changes: +DEXA2 PO
[2021-07-12] MEDS ORDERED: Ventolin/Prove6.7 GM INH (10:30)
== END 2021-07-12 10:58 | disposition home or self-care (01) ==
LOC: ER 09:11
DX: J45.909 Unspecified asthma, uncomplicated (principal); I10 Essential (primary) hypertension; K21.9 Gastro-esophageal reflux disease without esophagitis; Z87.891 Personal history of nicotine dependence; Z91.011 Allergy to milk products; Z91.048 Other nonmedicinal substance allergy status; Z79.899 Other long term (current) drug therapy
CPT/HCPCS: 94640; 99283

== ENCOUNTER 2021-08-03 20:02 | Emergency (ER) | payer BC ==
[~2021-08-03] VITALS: Ht 177.8 cm; Wt 106.6 kg
[2021-08-03 20:30] LABS: BASOPHILS ABSOLUTE AUTO 0.06 K/mm3 (0.00-0.23); BASOPHILS PERCENT AUTO 1 % (0-2); EOSINOPHILS ABSOLUTE AUTO 0.28 K/mm3 (0.00-0.68); EOSINOPHILS PERCENT AUTO 4 % (0-6); Hematocrit 48.3 % (37.0-53.0); Hemoglobin 16.1 g/dL (13.5-17.5); IMMATURE GRAN ABSOLUTE AUTO 0.03 K/mm3 (0.00-0.10); IMMATURE GRAN PERCENT AUTO 0 % (0-1); LYMPHOCYTES ABSOLUTE AUTO 1.97 K/mm3 (0.84-5.20); LYMPHOCYTES PERCENT AUTO 26 % (21-46); MONOCYTES ABSOLUTE AUTO 0.66 K/mm3 (0.16-1.47); MONOCYTES PERCENT AUTO 9 % (4-13); Mean Corpuscular HGB 32.3 pg (26.0-34.0); Mean Corpuscular HGB Conc 33.3 g/dL (31.5-36.5); Mean Corpuscular Volume 97 fL (80-100); NEUTROPHILS ABSOLUTE AUTO 4.57 K/mm3 (1.96-9.15); NEUTROPHILS PERCENT AUTO 60 % (41-73); Platelet Count 154 K/mm3 (150-400); RDW Coefficient Variation 13.1 % (11.7-14.2); RDW Standard Deviation 46.9 fL (35.1-46.3); Red Blood Cell Count 4.99 M/mm3 (4.30-5.90); White Blood Cell Count 7.57 K/mm3 (4.00-11.30)
[2021-08-03 20:51] LABS: Alanine Aminotransfer (ALT/SGP 34 U/L (12-78); Albumin, Blood 3.9 g/dL (3.4-5.0); Albumin/Globulin Ratio 1.1 (0.8-1.8); Alk Phos 96 U/L (50-136); Anion Gap 1 mmol/L (6-16); Aspartate Aminotrans (AST/SGOT 25 U/L (12-37); Bilirubin, Total 0.5 mg/dL (0.1-1.0); Blood Urea Nitrogen 16 mg/dL (8-24); Bun/Creatinine Ratio 17.2 (12.0-20.0); CO2, Blood 32 mmol/L (21-32); Calcium, Blood 9.1 mg/dL (8.5-10.1); Chloride, Blood 109 mmol/L (98-108); Creatinine, Blood 0.93 mg/dL (0.60-1.20); Globulin, Blood 3.6 g/dL (2.2-4.0); Glomerular Filtration Rate >60 (60-); Glucose, Blood 102 mg/dL (70-99); Potassium, Blood 3.7 mmol/L (3.5-5.5); Sodium, Blood 142 mmol/L (136-145); Total Protein, Blood 7.5 g/dL (6.4-8.2)
[2021-08-03] MEDS ORDERED: ALBU90OI INH (23:58)
[2021-08-03] MEDS ORDERED: Prednisone20 MG PO (23:58)
== END 2021-08-04 00:22 | disposition home or self-care (01) ==
LOC: ER 20:02
PROVIDERS: Student in an Organized Health Care Education/Training Program
DX: J45.901 Unspecified asthma with (acute) exacerbation (principal); Z91.011 Allergy to milk products; Z91.048 Other nonmedicinal substance allergy status; Z88.8 Allergy status to other drugs, medicaments and biological substances; Z79.899 Other long term (current) drug therapy; I10 Essential (primary) hypertension; K21.9 Gastro-esophageal reflux disease without esophagitis; Z87.891 Personal history of nicotine dependence
CPT/HCPCS: 36415; 71046; 80053; 85025; 93005; 93010; 94644; 94664; 99284-25; J7512

== ENCOUNTER 2021-08-19 16:56 | Emergency (ER) | payer BC ==
[~2021-08-19] VITALS: Ht 177.8 cm; Wt 99.8 kg
[2021-08-19] MEDS ORDERED: FLUT1DIS2 INH (18:05)
[2021-08-19] MEDS ORDERED: ALBU90OI INH (18:05)
== END 2021-08-19 19:35 | disposition home or self-care (01) ==
LOC: ER 16:56
DX: J45.901 Unspecified asthma with (acute) exacerbation (principal); I10 Essential (primary) hypertension; K21.9 Gastro-esophageal reflux disease without esophagitis; Z79.899 Other long term (current) drug therapy; F17.200 Nicotine dependence, unspecified, uncomplicated
CPT/HCPCS: 94644; 94664; 99284-25; A9270

== ENCOUNTER 2021-09-04 19:14 | Emergency (ER) | payer BC ==
[~2021-09-04] VITALS: Ht 177.8 cm; Wt 104.3 kg
[2021-09-04] MEDS ORDERED: ALBU90OI INH (19:23)
== END 2021-09-04 21:15 | disposition home or self-care (01) ==
LOC: ER 19:14
DX: Z76.0 Encounter for issue of repeat prescription (principal); J45.909 Unspecified asthma, uncomplicated; I10 Essential (primary) hypertension; F17.200 Nicotine dependence, unspecified, uncomplicated; Z91.011 Allergy to milk products; Z91.048 Other nonmedicinal substance allergy status
CPT/HCPCS: 99281

== ENCOUNTER 2021-09-30 21:34 | Emergency (ER) | payer BC ==
[~2021-09-30] VITALS: Ht 177.8 cm; Wt 104.3 kg
[2021-09-30] MEDS ORDERED: ALBU90OI INH (22:33)
== END 2021-09-30 23:48 | disposition home or self-care (01) ==
LOC: ER 21:34
DX: J45.901 Unspecified asthma with (acute) exacerbation (principal); Z87.891 Personal history of nicotine dependence; I10 Essential (primary) hypertension; Z79.899 Other long term (current) drug therapy; Z91.011 Allergy to milk products; Z91.09 Other allergy status, other than to drugs and biological substances
CPT/HCPCS: 94640; 94664; A9270; J1100

== ENCOUNTER 2021-10-29 22:53 | Emergency (ER) | payer SELFPAY ==
[~2021-10-29] VITALS: Ht 177.8 cm; Wt 104.3 kg
== END 2021-10-29 23:35 | disposition home or self-care (01) ==
LOC: ER 22:53
DX: J45.909 Unspecified asthma, uncomplicated (principal); Z76.0 Encounter for issue of repeat prescription; I10 Essential (primary) hypertension; F17.210 Nicotine dependence, cigarettes, uncomplicated; Z79.899 Other long term (current) drug therapy; Z91.011 Allergy to milk products; Z91.09 Other allergy status, other than to drugs and biological substances
CPT/HCPCS: A9270

== ENCOUNTER 2021-11-13 01:30 | Emergency (ER) | payer SELFPAY ==
[~2021-11-13] VITALS: Ht 177.8 cm; Wt 104.3 kg
== END 2021-11-13 04:24 | disposition home or self-care (01) ==
LOC: ER 01:30
DX: J45.909 Unspecified asthma, uncomplicated (principal); Z76.0 Encounter for issue of repeat prescription; I10 Essential (primary) hypertension; F17.210 Nicotine dependence, cigarettes, uncomplicated; Z91.011 Allergy to milk products; Z91.09 Other allergy status, other than to drugs and biological substances
CPT/HCPCS: A9270

== ENCOUNTER 2021-11-29 08:37 | Emergency (ER) | payer SELFPAY ==
[~2021-11-29] VITALS: Ht 177.8 cm; Wt 104.3 kg
[2021-11-29] MEDS ORDERED: ALBU90OI INH ×2 (10:13→10:14)
== END 2021-11-29 10:46 | disposition home or self-care (01) ==
LOC: ER 08:37
DX: J45.909 Unspecified asthma, uncomplicated (principal); I10 Essential (primary) hypertension; F17.210 Nicotine dependence, cigarettes, uncomplicated; Z91.011 Allergy to milk products; Z91.09 Other allergy status, other than to drugs and biological substances; Z76.0 Encounter for issue of repeat prescription
CPT/HCPCS: 94640; 94664; 99283-25

== ENCOUNTER 2021-12-11 00:15 | Emergency (ER) | payer SELFPAY ==
[~2021-12-11] VITALS: Ht 177.8 cm; Wt 104.3 kg
[2021-12-11 01:21] LABS: Influenza A, PCR NEGATIVE (NEGATIVE); Influenza B, PCR NEGATIVE (NEGATIVE); Resp Syncytial Virus, PCR NEGATIVE (NEGATIVE); SARS-Cov-2 (COVID-19) PCR, MMC NEGATIVE (NEGATIVE)
[2021-12-11 03:38] LABS: BASOPHILS ABSOLUTE AUTO 0.07 K/mm3 (0.00-0.23); BASOPHILS PERCENT AUTO 1 % (0-2); EOSINOPHILS ABSOLUTE AUTO 0.44 K/mm3 (0.00-0.68); EOSINOPHILS PERCENT AUTO 8 % (0-6); Hemoglobin 15.4 g/dL (13.5-17.5); IMMATURE GRAN ABSOLUTE AUTO 0.02 K/mm3 (0.00-0.10); IMMATURE GRAN PERCENT AUTO 0 % (0-1); LYMPHOCYTES ABSOLUTE AUTO 1.82 K/mm3 (0.84-5.20); LYMPHOCYTES PERCENT AUTO 31 % (21-46); MONOCYTES ABSOLUTE AUTO 0.62 K/mm3 (0.16-1.47); MONOCYTES PERCENT AUTO 11 % (4-13); Mean Corpuscular HGB 31.5 pg (26.0-34.0); Mean Corpuscular HGB Conc 32.8 g/dL (31.5-36.5); Mean Corpuscular Volume 96 fL (80-100); NEUTROPHILS ABSOLUTE AUTO 2.87 K/mm3 (1.96-9.15); NEUTROPHILS PERCENT AUTO 49 % (41-73); Platelet Count 133 K/mm3 (150-400); RDW Coefficient Variation 12.1 % (11.7-14.2); RDW Standard Deviation 42.5 fL (35.1-46.3); Red Blood Cell Count 4.89 M/mm3 (4.30-5.90); White Blood Cell Count 5.84 K/mm3 (4.00-11.30)
[2021-12-11 03:58] LABS: Albumin, Blood 3.7 g/dL (3.4-5.0); Albumin/Globulin Ratio 1.1 (0.8-1.8); Bilirubin, Total 0.3 mg/dL (0.1-1.0); Bun/Creatinine Ratio 14.7 (12.0-20.0); Calcium, Blood 8.2 mg/dL (8.5-10.1); Creatinine, Blood 0.82 mg/dL (0.60-1.20); Globulin, Blood 3.5 g/dL (2.2-4.0); Potassium, Blood 3.6 mmol/L (3.5-5.5); Total Protein, Blood 7.2 g/dL (6.4-8.2)
[2021-12-11] MEDS ORDERED: ALBU90OI INH (05:10)
[2021-12-11] MEDS ORDERED: DELTASONE20 MG PO (05:10)
== END 2021-12-11 05:52 | disposition home or self-care (01) ==
LOC: ER 00:15
PROVIDERS: Student in an Organized Health Care Education/Training Program
DX: J45.901 Unspecified asthma with (acute) exacerbation (principal); I10 Essential (primary) hypertension; Z79.899 Other long term (current) drug therapy; Z91.011 Allergy to milk products; Z91.09 Other allergy status, other than to drugs and biological substances; F17.210 Nicotine dependence, cigarettes, uncomplicated; Z20.822 Contact with and (suspected) exposure to COVID-19
CPT/HCPCS: 0241U; 36415; 71046; 80053; 85025; 94640; 94664; J7512

== ENCOUNTER 2022-01-30 00:18 | Emergency (ER) | payer SELFPAY ==
[~2022-01-30] VITALS: Ht 177.8 cm; Wt 108.9 kg
[2022-02-12] MEDS ORDERED: Prednisone20 MG PO (17:31)
[2022-02-12] MEDS ORDERED: ALBU8HFA2 INH (17:42)
== END 2022-01-30 01:43 | disposition home or self-care (01) ==
LOC: ER 00:18
DX: J45.901 Unspecified asthma with (acute) exacerbation (principal); I10 Essential (primary) hypertension; F17.210 Nicotine dependence, cigarettes, uncomplicated
CPT/HCPCS: 94640; 94664; 99284-25; A9270

== ENCOUNTER 2022-02-10 16:10 | Emergency (ER) | payer SELFPAY ==
[~2022-02-10] VITALS: Ht 177.8 cm; Wt 104.3 kg
[2022-02-12] MEDS ORDERED: Prednisone20 MG PO (17:31)
[2022-02-12] MEDS ORDERED: ALBU8HFA2 INH (17:42)
== END 2022-02-10 17:10 | disposition home or self-care (01) ==
LOC: ER 16:10
DX: J45.901 Unspecified asthma with (acute) exacerbation (principal); I10 Essential (primary) hypertension; K21.9 Gastro-esophageal reflux disease without esophagitis; F17.210 Nicotine dependence, cigarettes, uncomplicated; Z91.011 Allergy to milk products; Z91.048 Other nonmedicinal substance allergy status; Z79.899 Other long term (current) drug therapy
CPT/HCPCS: 94640; 94664; 99284-25; A9270

== ENCOUNTER 2022-02-23 20:15 | Emergency (ER) | payer BC ==
[~2022-02-23] VITALS: Ht 177.8 cm; Wt 104.3 kg
[~2022-02-23 20:15] MED LIST changes: +ALBU8HFA2 INH
[2022-02-23] MEDS ORDERED: ALBU90OI INH (23:05)
== END 2022-02-23 23:18 | disposition home or self-care (01) ==
LOC: ER 20:15
DX: J45.909 Unspecified asthma, uncomplicated (principal); I10 Essential (primary) hypertension; F17.210 Nicotine dependence, cigarettes, uncomplicated; Z79.899 Other long term (current) drug therapy; Z91.011 Allergy to milk products; Z91.09 Other allergy status, other than to drugs and biological substances; Z79.52 Long term (current) use of systemic steroids
CPT/HCPCS: A9270

== ENCOUNTER 2022-03-08 20:16 | Emergency (ER) | payer BC ==
[~2022-03-08] VITALS: Ht 177.8 cm; Wt 104.3 kg
[2022-03-08 21:41] LABS: Influenza A, PCR NEGATIVE (NEGATIVE); Influenza B, PCR NEGATIVE (NEGATIVE); Resp Syncytial Virus, PCR NEGATIVE (NEGATIVE); SARS-Cov-2 (COVID-19) PCR, MMC NEGATIVE (NEGATIVE)
== END 2022-03-08 23:45 | disposition home or self-care (01) ==
LOC: ER 20:16
PROVIDERS: Student in an Organized Health Care Education/Training Program
DX: J45.901 Unspecified asthma with (acute) exacerbation (principal); I10 Essential (primary) hypertension; F17.210 Nicotine dependence, cigarettes, uncomplicated; Z91.011 Allergy to milk products; Z91.048 Other nonmedicinal substance allergy status; Z79.899 Other long term (current) drug therapy; Z20.822 Contact with and (suspected) exposure to COVID-19
CPT/HCPCS: 0241U; 94640; 94664

== ENCOUNTER 2022-04-07 21:46 | Emergency (ER) | payer BC ==
[~2022-04-07] VITALS: Ht 177.8 cm; Wt 59.0 kg
[2022-04-07] MEDS ORDERED: ONDA4ODT MM (22:18)
[2022-04-07] MEDS ORDERED: Tamiflu75 MG PO (22:18)
== END 2022-04-07 22:20 | disposition home or self-care (01) ==
LOC: ER 21:46
DX: J11.1 Influenza due to unidentified influenza virus with other respiratory manifestations (principal); I10 Essential (primary) hypertension; J45.909 Unspecified asthma, uncomplicated; F17.210 Nicotine dependence, cigarettes, uncomplicated; Z91.011 Allergy to milk products
CPT/HCPCS: A9270

== ENCOUNTER 2022-05-10 04:22 | Emergency (ER) | payer BC ==
[~2022-05-10] VITALS: Ht 177.8 cm; Wt 104.3 kg
[~2022-05-10 04:22] MED LIST changes: +ONDA4ODT MM; +Tamiflu75 MG PO
[2022-05-10] MEDS ORDERED: FLUT1DIS2 (05:02)
[2022-05-10] MEDS ORDERED: ALBU90OI INH (05:11)
== END 2022-05-10 05:20 | disposition home or self-care (01) ==
LOC: ER 04:22
DX: J45.901 Unspecified asthma with (acute) exacerbation (principal); I10 Essential (primary) hypertension; F17.210 Nicotine dependence, cigarettes, uncomplicated; Z79.899 Other long term (current) drug therapy; Z91.011 Allergy to milk products; Z91.048 Other nonmedicinal substance allergy status
CPT/HCPCS: A9270

== ENCOUNTER 2023-05-20 18:55 | Emergency (ER) | payer BC ==
[~2023-05-20] VITALS: Ht 175.3 cm; Wt 104.3 kg
[~2023-05-20 18:55] MED LIST changes: +FLUT1DIS2
[2023-05-20 19:41] VITALS: BP 151/106
[2023-05-20] MEDS ORDERED: Prednisone20 MG PO (19:46)
== END 2023-05-20 21:38 | disposition home or self-care (01) ==
LOC: ER 18:55
DX: J45.901 Unspecified asthma with (acute) exacerbation (principal); I10 Essential (primary) hypertension; F17.210 Nicotine dependence, cigarettes, uncomplicated; Z91.011 Allergy to milk products; Z91.048 Other nonmedicinal substance allergy status; Z79.51 Long term (current) use of inhaled steroids
CPT/HCPCS: 94640; 94664; 99284-25; A9270; J7512

== ENCOUNTER 2024-01-27 02:24 | Emergency (ER) | payer BC ==
[~2024-01-27] VITALS: Ht 177.8 cm; Wt 113.4 kg
[2024-01-27] MEDS ORDERED: Ipratropium/Albuterol SulF 2.5-0.5MG/3 ML Amp INH ONE (02:50)
[2024-01-27 05:00] VITALS: BP 156/105
[2024-01-27] MEDS ORDERED: PRED20 PO (05:00)
== END 2024-01-27 05:05 | disposition home or self-care (01) ==
LOC: ER 02:24
DX: J45.901 Unspecified asthma with (acute) exacerbation (principal); J45.909 Unspecified asthma, uncomplicated; I10 Essential (primary) hypertension; F17.210 Nicotine dependence, cigarettes, uncomplicated; Z79.51 Long term (current) use of inhaled steroids; Z79.899 Other long term (current) drug therapy; Z91.011 Allergy to milk products; Z91.048 Other nonmedicinal substance allergy status
CPT/HCPCS: 94640; 94664; 99284-25

== ENCOUNTER 2024-10-01 14:59 | Emergency (ER) | payer BC ==
[~2024-10-01] VITALS: Ht 177.8 cm; Wt 99.8 kg
[2024-10-01] MEDS ORDERED: AMLODIPINE BES2.5 MG PO (15:11)
[2024-10-01] MEDS ORDERED: Ondansetron HCl 2 MG / ML 2ML Vial IV ONE (15:15)
[2024-10-01 15:34] LABS: BASOPHILS ABSOLUTE AUTO 0.05 K/mm3 (0.00-0.23); BASOPHILS PERCENT AUTO 0 % (0-2); EOSINOPHILS ABSOLUTE AUTO 0.15 K/mm3 (0.00-0.68); EOSINOPHILS PERCENT AUTO 1 % (0-6); Hematocrit 53.2 % (37.0-53.0); Hemoglobin 18.1 g/dL (13.5-17.5); IMMATURE GRAN ABSOLUTE AUTO 0.04 K/mm3 (0.00-0.10); IMMATURE GRAN PERCENT AUTO 0 % (0-1); LYMPHOCYTES ABSOLUTE AUTO 1.27 K/mm3 (0.84-5.20); LYMPHOCYTES PERCENT AUTO 11 % (21-46); MONOCYTES ABSOLUTE AUTO 0.67 K/mm3 (0.16-1.47); MONOCYTES PERCENT AUTO 6 % (4-13); Mean Corpuscular Volume 94 fL (80-100); Mean Platelet Volume 10.2 fL (9.1-12.4); NEUTROPHILS ABSOLUTE AUTO 9.48 K/mm3 (1.96-9.15); NEUTROPHILS PERCENT AUTO 81 % (41-73); Platelet Count 141 K/mm3 (150-400); RDW Standard Deviation 45.6 fL (35.1-46.3); Red Blood Cell Count 5.65 M/mm3 (4.30-5.90); White Blood Cell Count 11.66 K/mm3 (4.00-11.30)
[2024-10-01 16:04] LABS: Albumin, Blood 4.4 g/dL (3.4-5.0); Bilirubin, Total 1.4 mg/dL (0.1-1.0); Bun/Creatinine Ratio 13.5 (12.0-20.0); Calcium, Blood 9.9 mg/dL (8.5-10.1); Creatinine, Blood 0.82 mg/dL (0.60-1.20); Globulin, Blood 4.3 g/dL (2.2-4.0); Total Protein, Blood 8.7 g/dL (6.4-8.2)
[2024-10-01 19:32] VITALS: BP 137/95
[2024-10-01] MEDS ORDERED: Atropine/Scopalam/Hyoscam/PB 5 ML UDC PO ONE (21:45)
[2024-10-01] MEDS ORDERED: NS 1,000 ML IV SCH (21:45)
[2024-10-01] MEDS ORDERED: Lidocaine 2% Viscous Soln 15 ML UDC PO ONE (21:45)
[2024-10-01] MEDS ORDERED: Mag Hydrox/AL Hydrox/Simeth 30 ML UDC PO ONE (21:45)
[2024-10-01] MEDS ORDERED: Acetaminophen 500 MG Tab PO ONE (21:45)
[2024-10-01] MEDS ORDERED: Aspirin 325 MG Tab PO ONE (22:40)
[2024-10-01] MEDS ORDERED: ONDA4ODT MM (22:44)
[2024-10-01] MEDS ORDERED: Clopidogrel Bisulfate 75 MG Tab PO ONE (22:45)
== END 2024-10-01 23:10 | disposition home or self-care (01) ==
LOC: ER 14:59
PROVIDERS: Student in an Organized Health Care Education/Training Program
DX: K52.9 Noninfective gastroenteritis and colitis, unspecified (principal); K42.9 Umbilical hernia without obstruction or gangrene; K76.0 Fatty (change of) liver, not elsewhere classified; K80.20 Calculus of gallbladder without cholecystitis without obstruction; Z91.011 Allergy to milk products; Z91.048 Other nonmedicinal substance allergy status; J45.909 Unspecified asthma, uncomplicated; I10 Essential (primary) hypertension; K21.9 Gastro-esophageal reflux disease without esophagitis; F17.210 Nicotine dependence, cigarettes, uncomplicated
CPT/HCPCS: 74177; 80053; 83690; 85025; 93005; 93010; 96361; 96374-59; 99284-25; A9270; J2405; J7030; Q9967